=== PATIENT | male | born 1970 | race African-American/Black ===

== ENCOUNTER 2017-10-12 17:48 | Inpatient (IN) | payer OTHER ==
[2017-10-12 17:51] VITALS: BMI 29.0
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
[2017-10-12] MEDS ORDERED: SODIUM CHLORIDE 0.9% 500 ML INFUS.BAG IV ONE (19:28)
[2017-10-12 20:11] LABS: BASO % 0.2 % (0-2.0); EOS % 1.4 % (0-4.5); HEMATOCRIT 41.7 % (35.4-49); HEMOGLOBIN 14.1 GM/dL (11.7-16.9); LYMPH % 15.8 % (8-40); MCH 29.6 pg (25.7-33.7); MCHC 33.8 g/dl (32.0-35.9); MEAN CELL VOLUME 87.6 fl (80-96); MONO % 5.9 % (3.8-10.2); NEUT % 76.7 % (42.8-82.8); PLATELET COUNT 149 K/MM3 (134-434); RBC 4.76 M/mm3 (4.00-5.60); RDW 14.6 % (11.9-15.9)
--- NOTE | 2017-10-12 20:13 | PDOC ---
Attending Attestation - HPI HPI: 10/12/17 22:27 CC: Epigastric Pain HPI: The patient is a 47 year old male, with a significant past medical history of hypertension and Type 2 diabetes, gallstone pancreatitis, and on HIV prophylaxis , who presents to the emergency department with, epigastric pain. He describes his pain as non-radiating, deep, sharp, and ranking a 8/10. He describes his pain to be similar to an episode 2 years ago which he was admitted for gallstone pancreatitis. He denies any recent fevers, chills, headache or dizziness. He denies any recent nausea, vomit, diarrhea or constipation. He denies any recent chest pain or shortness of breath. He denies any recent dysuria, frequency, urgency or hematuria. Allergies: Lactose Past surgical history: None reported. Social History: Nonsmoker. Denies EtOH use and recreational drug use. - Physicial Exam PE: 10/12/17 23:42 Vitals: Triage vital signs reviewed General Appearance: No acute distress, well nourished, well developed Head: Atraumatic Neck: Supple; No nuchal rigidity Chest Wall: Nontender Cardiac: Regular rate and rhythm, no murmurs, no rubs, no gallops Lungs: Clear to auscultation bilateral, good air movement bilaterally Abdomen: +Right upper quadrant tenderness to palpation. Soft, nondistended, normal bowel sounds Genitourinary: Rectal: Exam deferred Extremities: Full range of motion to all extremities, no cyanosis, clubbing, or edema Skin: Warm and dry, no rashes or lesions, no rash, no petechiae Psych: Normal mood, normal affect - Medical Decision Making 10/12/17 10:50pm Call placed to Dr. Wise, business division chair for GI, case discussed with resident. 10:55 pm Call placed to Dr. Moreau, business division chair for surgery, case discussed with resident. <Allie Sawant - Last Filed: 10/12/17 23:42> - Resident Resident Name: Marcia Pillai - ED Attending Attestation I have performed the following: I have examined & evaluated the patient, The case was reviewed & discussed with the resident, I agree w/resident's findings & plan, Exceptions are as noted - Medical Decision Making Slightly elevated LFTs. Patient persistent pain. Ultrasound demonstrates gallstones and dilated CBD History examination physical exam consistent with choledocholithiasis Gastroenterology and surgery have both been consulsted antibiotics have been ordered we'll admit to medicine for further management. <Durga Troncoso - Last Filed: 10/13/17 00:11> Attestations - Attestations 10/12/17 22:27 Documentation prepared by Allie Sawant, acting as medical front desk specialist for Durga Troncoso MD. <Allie Sawant - Last Filed: 10/12/17 23:42> - Attestations Physician Attestation: A portion of this note was documented by scribe services under my direction I reviewed the details of note within reason and agree with the documentation with the following case summary and management plan written by me <Durga Troncoso - Last Filed: 10/13/17 00:11>
[2017-10-12 20:36] LABS: ALBUMIN 4.6 g/dl (3.4-5.0); ANION GAP 1 (8-16); BILIRUBIN,DIRECT 0.8 mg/dL (0.0-0.2); BILIRUBIN,TOTAL 1.2 mg/dL (0.2-1.0); BLOOD UREA NITROGEN 15 mg/dL (7-18); CALCIUM 9.2 mg/dL (8.5-10.1); CHLORIDE 105 mmol/L (98-107); CO2 32 mmol/L (21-32); CREATININE 0.9 mg/dL (0.7-1.3); GLUCOSE,RANDOM 143 mg/dL (74-106); POTASSIUM 3.9 mmol/L (3.5-5.1); SGOT/AST 227 U/L (15-37); SGPT/ALT 110 U/L (12-78); SODIUM 138 mmol/L (136-145); TOT PROT 8.5 g/dl (6.4-8.2)
[2017-10-12 20:37] LABS: ALK PHOS 99 U/L (45-117); INR 1.04 (0.82-1.09); LIPASE 252 U/L (73-393); PROTHROMBIN TIME (PATIENT) 11.8 SEC (9.98-11.88)
[2017-10-12] MEDS ORDERED: morphine CARPU-JECT 4 MG/1 ML DISP.SYRIN IVPUSH ONE (21:07)
[2017-10-12] MEDS ORDERED: morphine SULFATE 4 MG/ML VIAL ONE (21:12)
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
[2017-10-13] MEDS ORDERED: morphine SULFATE 4 MG/ML VIAL IVPUSH PRN (01:03)
[2017-10-13] MEDS ORDERED: ONDANSETRON 4 MG/2 ML VIAL IVPUSH PRN (01:03)
--- NOTE | 2017-10-13 01:29 | PN ---
Teaching Attending Note Name of Resident: Al Pennington ATTENDING PHYSICIAN STATEMENT I saw and evaluated the patient. Chart, data reviewed. I reviewed the resident's note and discussed the case with the resident. I agree with the resident's findings and plan as documented. SUBJECTIVE: 47 year old male, with a significant past medical history of hypertension and Type 2 diabetes, gallstone pancreatitis, and on HIV prophylaxis, presented with RUQ pain non-radiating, deep, sharp. He describes his pain to be similar to an episode 2 years ago which he was admitted for gallstone pancreatitis. U/S of gallbladder showed CBD dilatation, and gallbladder wall thickening and gallbladder distention. OBJECTIVE: Last Vital Signs Temp Pulse Resp BP Pulse Ox 97.9 F 67 20 159/88 99 10/12/17 17:48 10/12/17 17:48 10/12/17 17:48 10/12/17 17:48 10/12/17 17:48 General- pleasant, nad heent- at, nc, moist oral mucosa neck -supple cv -s1+s2+ rrr chest - cta b/l abdomen - soft, nt, bs+, no rebound tenderness ext- no pedal edema Abnormal Lab Results 10/12/17 19:52 Anion Gap 1 L Random Glucose 143 H Total Bilirubin 1.2 H D Direct Bilirubin 0.8 H D AST 227 H D ALT 110 H Total Protein 8.5 H ASSESSMENT AND PLAN: #47yo man with acute cholecystitis and choledocholithiasis with CBD dilatation- 9mm and gallbladder distention and wall thickening on U/S. GI and surgery consulted. Otherwise clinically stable. No evidence of infection so no antibiotics needed at this time. -admit to med/surg -morphine IV prn for pain control -IVF hydration -type and screen -PT, PTT -surgery consult for cholecystectomy -GI consult for ERCP -NPO -zofran PRN for nausea/vomiting #DM -insulin sliding scale #DVT- insulin sc
[2017-10-13] MEDS: SODIUM CHLORIDE 1,000 ML IV SCH ×2 (01:34→12:52)
[2017-10-13] MEDS: INSULIN SLIDING SCALE (NOVOLOG) 1 VIAL SQ SCH ×2 (06:37→12:59)
[2017-10-13 08:26] LABS: BASO % 0.3 % (0-2.0); EOS % 1.8 % (0-4.5); HEMATOCRIT 38.5 % (35.4-49); HEMOGLOBIN 12.8 GM/dL (11.7-16.9); LYMPH % 26.4 % (8-40); MCH 28.8 pg (25.7-33.7); MCHC 33.2 g/dl (32.0-35.9); MEAN CELL VOLUME 86.6 fl (80-96); MEAN PLT VOLUME 10.9 fl (7.5-11.1); MONO % 8.8 % (3.8-10.2); NEUT % 62.7 % (42.8-82.8); PLATELET COUNT 125 K/MM3 (134-434); RBC 4.45 M/mm3 (4.00-5.60); RDW 14.4 % (11.9-15.9); WHITE BLOOD COUNT 5.8 K/mm3 (4.0-10.0)
--- NOTE | 2017-10-13 09:33 | PN ---
Progress Note, Physician History of Present Illness: 47 yo man with pmh of HTN, NIDDM, gallstone pancreatitis, who presents with persistent RUQ pain starting at 4PM on day of admission. Pt with prior hx of gallstone pancreatitis and cholelithiasis 2-3 years ago during "[place] ", which he received w/u with plan for GB removal, however did not undergo surgery do symptomatic improvement and "busy schedule". On this admission, pt states he was eating [place] food around 3Pm and an hour later developed a sharp , deep, non-radiating pain in his RUQ, 02/21 which was identical to his prior presentation of choledocholithiasis. Pt states the pain was persistent, worsened with inspiration and non-positional. He denies f/c/n/v/d, cough, CP, RAUSCH , dizziness, back pain, dysuria, hematuria. No major changes in diet, sick contacts or recent travel. 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 In ED, pt diagnosed with choledocholiathiasis via RUQ US. Surgery and GI consulted. - Current Medication List Current Medications: Active Medications Carvedilol (Coreg -) 25 mg PO BID [facility] Emtricitabine/Tenofovir (Truvada) 1 tab PO DAILY [facility] Eplerenone (Eplerenone) 25 mg PO DAILY [facility] Sodium Chloride (Normal Saline -) 1,000 mls @ 75 mls/hr IV ASDIR [facility] Last Admin: 10/13/17 01:34 Dose: 75 mls/hr Insulin Aspart (Novolog Vial Sliding Scale -) 1 vial SQ ACHS [facility] PRN Reason: Protocol Last Admin: 10/13/17 06:37 Dose: Not Given Morphine Sulfate (Morphine Sulfate) 2 mg IVPUSH Q4H PRN PRN Reason: PAIN LEVEL 1-5 Ondansetron HCl (Zofran Injection) 4 mg IVPUSH Q6H PRN PRN Reason: NAUSEA - Objective Vital Signs: Vital Signs Temperature 97.8 F 10/13/17 06:00 Pulse Rate 65 10/13/17 06:00 Respiratory Rate 18 10/13/17 06:00 Blood Pressure 142/85 10/13/17 06:00 O2 Sat by Pulse Oximetry (%) 95 10/13/17 00:10 Cardiovascular: Yes: S1, S2 Respiratory: Yes: Regular, CTA Bilaterally Gastrointestinal: Yes: Normal Bowel Sounds, Soft. No: Tenderness Labs: CBC, BMP 10/13/17 06:45 10/12/17 19:52 INR, PTT INR 1.04 (0.82-1.09) 10/12/17 19:52 Problem List - Problems (1) HTN (hypertension) Assessment/Plan: Vital Signs Period Temp Pulse Resp BP Sys/Hinojosa Pulse Ox Last 24 Hr 97.8 F-98.5 F 65-89 18-20 142-159/85-93 95-99 MONITOR ON COREG EKG CARDIO Code(s): I10 - ESSENTIAL (PRIMARY) HYPERTENSION (2) Calculus common bile duct with chronic cholecystitis with obstruction Assessment/Plan: MRCP GI CONSULT IV ABX Code(s): K80.41 - CALCULUS OF BILE DUCT W CHOLECYSTITIS, UNSP, W OBSTRUCTION (3) Right upper quadrant abdominal pain Assessment/Plan: IMPROVED IV ABX GI SURGERY CONSULT NOTED Code(s): R10.11 - RIGHT UPPER QUADRANT PAIN (4) Abnormal LFTs Assessment/Plan: FOLLOW TRENDS MRCP Code(s): R94.5 - ABNORMAL RESULTS OF LIVER FUNCTION STUDIES (5) Diabetes Assessment/Plan: BGM Code(s): E11.9 - TYPE 2 DIABETES MELLITUS WITHOUT COMPLICATIONS
[2017-10-13 10:18] LABS: INR 1.16 (0.82-1.09); PROTHROMBIN TIME (PATIENT) 13.1 SEC (9.98-11.88)
[2017-10-13 10:46] LABS: ALBUMIN 3.6 g/dl (3.4-5.0); ALK PHOS 105 U/L (45-117); ANION GAP 7 (8-16); BILIRUBIN,TOTAL 2.1 mg/dL (0.2-1.0); BLOOD UREA NITROGEN 10 mg/dL (7-18); CALCIUM 8.5 mg/dL (8.5-10.1); CHLORIDE 108 mmol/L (98-107); CO2 26 mmol/L (21-32); CREATININE 0.8 mg/dL (0.7-1.3); GLUCOSE,RANDOM 101 mg/dL (74-106); LIPASE 129 U/L (73-393); POTASSIUM 3.9 mmol/L (3.5-5.1); SGPT/ALT 319 U/L (12-78); SODIUM 141 mmol/L (136-145); TOT PROT 6.9 g/dl (6.4-8.2)
[2017-10-13 10:47] LABS: SGOT/AST 528 U/L (15-37)
[2017-10-13] MEDS ORDERED: PT OWN MED DRAWER 7, Y5N ONE (13:02)
[2017-10-13] MEDS: EPLERENONE 25 MG TABLET PO SCH (13:03)
[2017-10-13] MEDS: CARVEDILOL 25 MG TABLET (FP) PO SCH ×2 (13:03→21:45)
[2017-10-13] MEDS: EMTRICITABINE 200MG/TENOFOVIR 300MG PO SCH (13:04)
--- NOTE | 2017-10-13 13:10 | CON.CARD ---
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 Cholecystectomy is being considered. The patient is an active man. Denies chest pains and shortness of breath while going up the stairs or walking outside. He is currently comfortable and symptom free. 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 History of Recent Travel: No Home Medications - Allergies Allergies/Adverse Reactions: Allergies Allergy/AdvReac Type Severity Reaction Status Date / Time lactose Allergy Verified 10/12/17 17:51 - Home Medications Home Medications: Ambulatory Orders Carvedilol [Coreg -] 25 mg PO BID #0 tablet 05/12/12 Eplerenone 25 mg PO DAILY #0 tablet 05/12/12 Valsartan [Diovan] 320 mg PO DAILY #0 tablet 05/12/12 Emtricitabine/Tenofovir (Tdf) [Truvada 200 mg-300 mg Tablet] 1 each PO DAILY Metformin HCl [Metformin HCl ER] 1,000 mg PO DAILY 10/12/17 Review of Systems - Review of Systems Constitutional: reports: No Symptoms Eyes: reports: No Symptoms HENT: reports: No Symptoms Neck: reports: No Symptoms Cardiovascular: reports: No Symptoms Respiratory: reports: No Symptoms Gastrointestinal: reports: Abdominal Pain, Nausea Genitourinary: reports: No Symptoms Breasts: reports: No Symptoms Reported Musculoskeletal: reports: No Symptoms Integumentary: reports: No Symptoms Neurological: reports: No Symptoms Endocrine: reports: No Symptoms Hematology/Lymphatic: reports: No Symptoms Psychiatric: reports: No Symptoms Vital Signs: Vital Signs Temperature 98 F 10/13/17 10:00 Pulse Rate 58 L 10/13/17 10:00 Respiratory Rate 18 10/13/17 10:00 Blood Pressure 142/90 10/13/17 10:00 O2 Sat by Pulse Oximetry (%) 95 10/13/17 00:10 Constitutional: Yes: Well Nourished, No Distress, Calm Eyes: Yes: WNL, Conjunctiva Clear, EOM Intact HENT: Yes: WNL, Atraumatic, Normocephalic Neck: Yes: WNL, Supple, Trachea Midline Respiratory: Yes: WNL, Regular, CTA Bilaterally Gastrointestinal: Yes: Normal Bowel Sounds, Soft, Tenderness Renal/: Yes: WNL Cardiovascular: Yes: WNL, Regular Rate and Rhythm JVD: No Carotid Bruit: No PMI: Non-Displaced Heart Sounds: Yes: S1, S2 Musculoskeletal: Yes: WNL Extremities: Yes: WNL Edema: No Peripheral Pulses: 2+ Left Carotid, 2+ Right Carotid, 2+ Left Femoral, 2+ Right Femoral, 2+ Left Popliteal, 2+ Right Popliteal, 2+ Left Doralis Pedis, 2+ Right Dorsalis Pedis Integumentary: Yes: WNL Neurological: Yes: WNL ...Motor Strength: WNL - Other Data Labs, Other Data: CBC, BMP 10/13/17 06:45 10/13/17 07:30 INR, PTT INR 1.16 (0.82-1.09) H 10/13/17 07:30 Troponin, BNP 10/12/17 20:40 Troponin I < 0.02 Troponin, BNP 10/12/17 20:40 Troponin I < 0.02 Assessment/Plan 47-year-old man with a history of diabetes, hypertension, hyperlipidemia, gallstone pancreatitis, now presenting with abdominal pain, nausea and vomiting. May need cholecystectomy. The patient reports no recent chest pains. He is very active and reports no important limitations nor symptoms during physical activity. I believe that the patient is medically optimized from the cardiac standpoint for surgery. There is no need for further cardiac workup nor testing prior to surgery. Please make sure that the patient receives his blood pressure medications in the morning of the surgery, and perioperatively as possible. Try to keep hemoglobin above 10.0 perioperatively. Please achieve good pain control perioperatively. Please proceed with surgery if deemed necessary. We will see postoperatively.
--- NOTE | 2017-10-13 14:54 | PN ---
Progress Note (short form) - Note Progress Note: ID Consult dictated Acute/ chronic cholecystitis R/O choledocholithiasis Worsening transaminitis Thrombocytopenia Obtain cultures Await MRCP Empiric zosyn Cholecystectomy per surgery Continue PrEP
[2017-10-13] MEDS: PIPERACILLIN/TAZOB 3.375 GM 3.375 GM in DEXTROSE 5%-WATER - 50 ML IVPB SCH ×2 (16:04→18:19)
--- NOTE | 2017-10-13 16:07 | EKG ---
Test Reason : Blood Pressure : / mmHG Vent. Rate : 067 BPM Atrial Rate : 067 BPM P-R Int : 176 ms QRS Dur : 108 ms QT Int : 386 ms P-R-T Axes : 064 043 -04 degrees QTc Int : 407 ms NORMAL SINUS RHYTHM LEFT ATRIAL ENLARGEMENT LEFT VENTRICULAR HYPERTROPHY T WAVE ABNORMALITY, CONSIDER INFERIOR ISCHEMIA ABNORMAL ECG WHEN COMPARED WITH ECG OF 12-MAY-2012 10:01, NO SIGNIFICANT CHANGE WAS FOUND Confirmed by MD THONG, LIZZ ([id number]) on 10/13/2017 4:07:20 PM Referred By: Confirmed By:LIZZ BENITO MD
--- NOTE | 2017-10-13 18:44 | CON.GI ---
Consult Consult Specialty:: GI Reason for Consultation:: Choledocolithiasis - History of Present Illness History of Present Illness: Chart reviewed. Events noted A 47M with hx of GS pancreatitis. Was advised to have GB out, but could not get it done thus far. Epigastric abdominal pain x 1 day. Onset after a meal, did not improve as day progressed. Similar to prior episode of GS pancreatitis. In ED noted to have cholestasisis with AST preominant transaminitis, normal WBC lipase and ALP. Had good response to IVF, pain medications, and NPO. Asymptomatic at the time of this encounter. Reports no history of dysphagia, odynophagia, GERD, PUD. No melena, hematochezia, jaundice, weight loss, known chronic leiver disease. Deneis alcohol abuse. US liver - cholelithiasis, CBD not well visualized. MRI was done, formal report pending. 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 History of Recent Travel: No Home Medications - Allergies Allergies/Adverse Reactions: Allergies Allergy/AdvReac Type Severity Reaction Status Date / Time lactose Allergy Verified 10/12/17 17:51 - Home Medications Home Medications: Ambulatory Orders Carvedilol [Coreg -] 25 mg PO BID #0 tablet 05/12/12 Eplerenone 25 mg PO DAILY #0 tablet 05/12/12 Valsartan [Diovan] 320 mg PO DAILY #0 tablet 05/12/12 Emtricitabine/Tenofovir (Tdf) [Truvada 200 mg-300 mg Tablet] 1 each PO DAILY Metformin HCl [Metformin HCl ER] 1,000 mg PO DAILY 10/12/17 Family Disease History - Family Disease History Family History: Unremarkable Review of Systems Findings/Remarks: As per HPI. H&P Physical Exam-GI Vital Signs: Vital Signs Temperature 98 F 10/13/17 10:00 Pulse Rate 58 L 10/13/17 10:00 Respiratory Rate 18 10/13/17 10:00 Blood Pressure 142/90 10/13/17 10:00 O2 Sat by Pulse Oximetry (%) 95 10/13/17 00:10 Constitutional: Yes: Well Nourished, No Distress, Calm Eyes: Yes: Conjunctiva Clear HENT: Yes: Atraumatic Neck: Yes: Supple Cardiovascular: Yes: Regular Rate and Rhythm Respiratory: Yes: Regular ...Auscultate: Yes: Normoactive Bowel Sounds ...Palpate: No: Firm/Rigid, Guarding, Splenomegaly, Tenderness, Epigastium Neurological: Yes: Alert, Oriented Labs: CBC, BMP 10/13/17 06:45 10/13/17 07:30 INR, PTT INR 1.16 (0.82-1.09) H 10/13/17 07:30 Laboratory Tests 10/12/17 10/12/17 10/12/17 19:52 19:52 19:52 WBC 9.0 D RBC 4.76 Hgb 14.1 Hct 41.7 MCV 87.6 MCH 29.6 MCHC 33.8 RDW 14.6 Plt Count 149 D MPV 10.0 Neutrophils % 76.7 D Lymphocytes % 15.8 D Monocytes % 5.9 Eosinophils % 1.4 D Basophils % 0.2 PT with INR 11.80 INR 1.04 Sodium 138 Potassium 3.9 Chloride 105 Carbon Dioxide 32 Anion Gap 1 L BUN 15 D Creatinine 0.9 D Creat Clearance w eGFR > 60 POC Glucometer Random Glucose 143 H Calcium 9.2 Total Bilirubin 1.2 H D Direct Bilirubin 0.8 H D AST 227 H D ALT 110 H Alkaline Phosphatase 99 D Troponin I Total Protein 8.5 H Albumin 4.6 D Lipase 252 Blood Type Antibody Screen 10/12/17 10/12/17 10/13/17 19:52 20:40 06:35 WBC RBC Hgb Hct MCV MCH MCHC RDW Plt Count MPV Neutrophils % Lymphocytes % Monocytes % Eosinophils % Basophils % PT with INR INR Sodium Potassium Chloride Carbon Dioxide Anion Gap BUN Creatinine Creat Clearance w eGFR POC Glucometer 95 Random Glucose Calcium Total Bilirubin Direct Bilirubin AST ALT Alkaline Phosphatase Troponin I < 0.02 Total Protein Albumin Lipase Blood Type O POSITIVE Antibody Screen Negative 10/13/17 10/13/17 10/13/17 06:45 07:30 07:30 WBC 5.8 D RBC 4.45 Hgb 12.8 Hct 38.5 MCV 86.6 MCH 28.8 MCHC 33.2 RDW 14.4 Plt Count 125 L MPV 10.9 Neutrophils % 62.7 Lymphocytes % 26.4 D Monocytes % 8.8 Eosinophils % 1.8 Basophils % 0.3 PT with INR 13.10 H INR 1.16 H Sodium 141 Potassium 3.9 Chloride 108 H Carbon Dioxide 26 Anion Gap 7 L BUN 10 D Creatinine 0.8 Creat Clearance w eGFR > 60 POC Glucometer Random Glucose 101 D Calcium 8.5 Total Bilirubin 2.1 H D Direct Bilirubin AST 528 H D ALT 319 H D Alkaline Phosphatase 105 Troponin I Total Protein 6.9 Albumin 3.6 D Lipase 129 Blood Type Antibody Screen 10/13/17 12:59 WBC RBC Hgb Hct MCV MCH MCHC RDW Plt Count MPV Neutrophils % Lymphocytes % Monocytes % Eosinophils % Basophils % PT with INR INR Sodium Potassium Chloride Carbon Dioxide Anion Gap BUN Creatinine Creat Clearance w eGFR POC Glucometer 104 Random Glucose Calcium Total Bilirubin Direct Bilirubin AST ALT Alkaline Phosphatase Troponin I Total Protein Albumin Lipase Blood Type Antibody Screen Imaging - Results MRI: Pending Problem List - Problems (1) Abnormal LFTs Code(s): R94.5 - ABNORMAL RESULTS OF LIVER FUNCTION STUDIES (2) Biliary calculi, common bile duct Code(s): K80.50 - CALCULUS OF BILE DUCT W/O CHOLANGITIS OR CHOLECYST W/O OBST (3) Calculus common bile duct with chronic cholecystitis with obstruction Code(s): K80.41 - CALCULUS OF BILE DUCT W CHOLECYSTITIS, UNSP, W OBSTRUCTION (4) Diabetes Code(s): E11.9 - TYPE 2 DIABETES MELLITUS WITHOUT COMPLICATIONS (5) HTN (hypertension) Code(s): I10 - ESSENTIAL (PRIMARY) HYPERTENSION Assessment/Plan A47M with cholelithiasis and hx of GS pancreatitis. Agree with current management Await for MRI/MRCP results ERCP if MRCP pos for choledocolithiasis Labs ordered Please keep NPO Discussed with the patient
--- NOTE | 2017-10-13 23:26 | CONS ---
DATE OF CONSULTATION: 10/13/2017 INFECTIOUS DISEASE CONSULTATION HISTORY OF PRESENT ILLNESS: The patient is a 47-year-old male with a prior history of gallstone pancreatitis, diabetes mellitus, and hypertension, evaluated for acute and chronic cholecystitis. The patient was admitted to the hospital 10/12/2017 after developing postprandial epigastric and right upper quadrant abdominal pain. He denies any associated nausea, vomiting, or diarrhea. He presented to the emergency room where he was noted to have elevated liver enzymes. A sonogram showed a large 3-cm gallstone with suggestion of acute cholecystitis. His course has been complicated by worsening transaminitis and thrombocytopenia. At the present time, he has no complaints of pain. He denies any associated fever or chills. The patient had a similar episode in 04/2012. At that time, he was advised a cholecystectomy; however, this was deferred by the patient. He denies any excessive alcohol intake. No history of hyperlipidemia. PAST MEDICAL HISTORY: Positive for non-insulin dependent diabetes mellitus, hypertension, gallstone pancreatitis. ALLERGIES: LACTOSE. MEDICATION: Include Coreg, Diovan, metformin, Truvada. 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 He is a nonsmoker. Social ETOH. SYSTEMS REVIEW: Neurologic: No loss of consciousness, seizure activity, or focal weakness. Cardiac: Negative chest pain or palpitations. Respiratory: Negative cough or sputum production. Gastrointestinal: As per HPI. Genitourinary: Negative for urinary tract infection. LABORATORY DATA: White count 5.8, platelets 125, bilirubin 2.1, alkaline phosphatase 105, AST 528, ALT 319. Chest x-ray negative for acute infiltrate. PHYSICAL EXAMINATION: General: He is supine in bed, awake and alert. He is not acutely toxic appearing, in no acute distress. Vital signs: Temperature 98F, blood pressure 142/90, pulse 51 regular, respirations 18 per minute. HEENT: Sclerae anicteric. Cardiovascular: Heart sounds S1, S2. Respiratory: Lungs clear. Abdomen: Soft. No suprapubic or flank tenderness. Extremities: Negative for edema. IMPRESSION: 1. [id number]-rj-kdbrnea cholecystitis. 2. Rule out choledocholithiasis. 3. Worsening transaminitis. 4. Thrombocytopenia. Will obtain blood culture, await MRCP empiric coverage, biliary tract pathogens with Zosyn. Surgical evaluation, cholecystectomy as per surgery. Patient is presently on Truvada for preexposure prophylaxis. 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 Continue Truvada. Thank you for the kind referral. SAHIL CHEW M.D. [id number]
[2017-10-14] MEDS: PIPERACILLIN/TAZOB 3.375 GM 3.375 GM in DEXTROSE 5%-WATER - 50 ML IVPB SCH ×3 (01:14→18:17)
[2017-10-14 08:19] LABS: INR 1.21 (0.82-1.09); PROTHROMBIN TIME (PATIENT) 13.7 SEC (9.98-11.88)
[2017-10-14 08:21] LABS: ACTIVATED PTT 31.7 SECONDS (26.9-34.4)
[2017-10-14 08:23] LABS: BASO % 0.6 % (0-2.0); EOS % 1.9 % (0-4.5); HEMATOCRIT 40.1 % (35.4-49); HEMOGLOBIN 13.2 GM/dL (11.7-16.9); LYMPH % 15.9 % (8-40); MCH 28.7 pg (25.7-33.7); MEAN CELL VOLUME 86.9 fl (80-96); MEAN PLT VOLUME 10.1 fl (7.5-11.1); NEUT % 74.6 % (42.8-82.8); PLATELET COUNT 125 K/MM3 (134-434); RBC 4.61 M/mm3 (4.00-5.60); RDW 14.9 % (11.9-15.9); WHITE BLOOD COUNT 6.4 K/mm3 (4.0-10.0)
[2017-10-14] MEDS: CARVEDILOL 25 MG TABLET (FP) PO SCH ×2 (10:01→21:42)
[2017-10-14] MEDS: EPLERENONE 25 MG TABLET PO SCH (10:01)
[2017-10-14] MEDS: EMTRICITABINE 200MG/TENOFOVIR 300MG PO SCH (10:01)
[2017-10-14] MEDS ORDERED: MIDAZOLAM HCL 2 MG/2 ML SINGLE DOSE VIAL ONE (10:21)
[2017-10-14] MEDS ORDERED: ROCURONIUM BROMIDE 50 MG/5 ML VIAL ONE (10:21)
[2017-10-14] MEDS ORDERED: PROPOFOL 20 ML ONE (10:21)
[2017-10-14] MEDS ORDERED: GLYCOPYRROLATE 0.2 MG/1 ML VIAL ONE ×3 (10:22)
[2017-10-14] MEDS ORDERED: fentaNYL CITRATE 250 MCG/5 ML VIAL ONE (10:22)
[2017-10-14] MEDS ORDERED: NEOSTIGMINE METHYLSULFATE 0.5 MG/ML - 10 ML MDV ONE (10:22)
--- NOTE | 2017-10-14 10:35 | PN ---
Progress Note, Physician History of Present Illness: C/O RUQ discomfort No nausea/ vomiting No BM No c/o fever/ chills WBC WNL + thrombocytopenia LFTs pending - Current Medication List Current Medications: Active Medications Carvedilol (Coreg -) 25 mg PO BID [facility] Last Admin: 10/14/17 10:01 Dose: 25 mg Emtricitabine/Tenofovir (Truvada) 1 tab PO DAILY [facility] Last Admin: 10/14/17 10:01 Dose: 1 tab Eplerenone (Eplerenone) 25 mg PO DAILY [facility] Last Admin: 10/14/17 10:01 Dose: 25 mg Piperacillin Sod/Tazobactam (Sod 3.375 gm/ Dextrose) 50 mls @ 100 mls/hr IVPB Q8H-IV [facility] PRN Reason: Protocol Last Admin: 10/14/17 10:03 Dose: 100 mls/hr - Objective Vital Signs: Vital Signs Temperature 98.3 F 10/14/17 06:32 Pulse Rate 76 10/14/17 06:32 Respiratory Rate 18 10/14/17 06:32 Blood Pressure 108/64 10/14/17 06:32 O2 Sat by Pulse Oximetry (%) 97 10/13/17 21:00 Constitutional: Yes: No Distress Eyes: Yes: Sclera Icterus Cardiovascular: Yes: Regular Rate and Rhythm, S1, S2 Respiratory: Yes: CTA Bilaterally Gastrointestinal: Yes: Normal Bowel Sounds, Soft, Tenderness, Other (+ RUQ tenderness to palpation) Edema: No Labs: CBC, BMP 10/14/17 06:30 INR, PTT INR 1.21 (0.82-1.09) H 10/14/17 06:30 Assessment/Plan Acute on chronic cholecystitits R/O choledocholithiasis Elevated LFTs Thrombocytopenia BC pending For cholecystectomy Continue empiric zosyn aurelia-operatively
--- NOTE | 2017-10-14 10:49 | PN ---
Progress Note (short form) - Note Progress Note: GI Preprocedure NOte: I was asked by Dr. Perez to do an ERCP in this patient who has CBD stones. I have discussed the ERCP procedure in detail including informing him of the potential for such complications as perforation and hemorrhage and ERCP induces pancreatitis leading to multiorgan failure. He has no major medical problems. He is hypertensive and had a RIH. PE: Lungs: clear Cor: RR, nl S1, S2 Abd: BS normoactive, nontender Will proceed with ERCP FACUNDO
[2017-10-14] MEDS ORDERED: INDOMETHACIN 50 MG RECTAL SUPPOSITORY PR ONE ×2 (10:54→11:00)
[2017-10-14] MEDS ORDERED: ONDANSETRON 4 MG/2 ML VIAL ONE (11:02)
[2017-10-14] MEDS ORDERED: DEXAMETHASONE SOD PHOSPHATE 10 MG/1 ML VIAL ONE (11:03)
[2017-10-14] MEDS ORDERED: SEVOFLURANE 250 ML BTL ONE (11:51)
--- NOTE | 2017-10-14 12:09 | PN ---
Progress Note, Physician Chief Complaint: Cholecystitis History of Present Illness: IN OR right now - Current Medication List Current Medications: Active Medications Carvedilol (Coreg -) 25 mg PO BID [facility] Last Admin: 10/14/17 10:01 Dose: 25 mg Emtricitabine/Tenofovir (Truvada) 1 tab PO DAILY [facility] Last Admin: 10/14/17 10:01 Dose: 1 tab Eplerenone (Eplerenone) 25 mg PO DAILY [facility] Last Admin: 10/14/17 10:01 Dose: 25 mg Piperacillin Sod/Tazobactam (Sod 3.375 gm/ Dextrose) 50 mls @ 100 mls/hr IVPB Q8H-IV [facility] PRN Reason: Protocol Last Admin: 10/14/17 10:03 Dose: 100 mls/hr - Objective Vital Signs: Vital Signs Temperature 97.6 F 10/14/17 10:00 Pulse Rate 75 10/14/17 10:00 Respiratory Rate 20 10/14/17 10:00 Blood Pressure 131/79 10/14/17 10:00 O2 Sat by Pulse Oximetry (%) 97 10/14/17 09:00 Labs: CBC, BMP 10/14/17 06:30 INR, PTT INR 1.21 (0.82-1.09) H 10/14/17 06:30 Problem List - Problems (1) Biliary calculi, common bile duct Assessment/Plan: -Surgical consult -for choleycystectomy Code(s): K80.50 - CALCULUS OF BILE DUCT W/O CHOLANGITIS OR CHOLECYST W/O OBST (2) Diabetes Assessment/Plan: -A1c at 8.0 -BGM -Diabetic diet once he is advanced from clear liquids -metformin on hold during inpatient status -Novolog sliding scale -endocrinology consult -RD consult Code(s): E11.9 - TYPE 2 DIABETES MELLITUS WITHOUT COMPLICATIONS Qualifiers: Diabetes mellitus type: type 2 (3) HTN (hypertension) Assessment/Plan: -controlled at this time Code(s): I10 - ESSENTIAL (PRIMARY) HYPERTENSION (4) Hypernatremia Assessment/Plan: -monitor for now -repeat labs in AM Code(s): E87.0 - HYPEROSMOLALITY AND HYPERNATREMIA Assessment/Plan see problem list
[2017-10-14 12:25] LABS: ALBUMIN 3.8 g/dl (3.4-5.0); ALK PHOS 152 U/L (45-117); ANION GAP 11 (8-16); BILIRUBIN,TOTAL 1.8 mg/dL (0.2-1.0); BLOOD UREA NITROGEN 9 mg/dL (7-18); CALCIUM 9.1 mg/dL (8.5-10.1); CHLORIDE 114 mmol/L (98-107); CO2 24 mmol/L (21-32); GLUCOSE,RANDOM 102 mg/dL (74-106); POTASSIUM 3.9 mmol/L (3.5-5.1); SGOT/AST 222 U/L (15-37); SGPT/ALT 379 U/L (12-78); SODIUM 149 mmol/L (136-145); TOT PROT 7.5 g/dl (6.4-8.2)
--- NOTE | 2017-10-14 12:25 | PN ---
Progress Note (short form) - Note Progress Note: GI Procedure Note: Please see scanned ERCP report. Two CBD stones extracted. Need to observe for pancreatitis.
[2017-10-14] MEDS ORDERED: LACTATED RINGERS SOLUTION 1,000 ML/1,000 ML INFUS.BAG IV SCH ×2 (12:30→18:30)
--- NOTE | 2017-10-14 14:33 | PN ---
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 Cholecystectomy is being considered. The patient is an active man. Denies chest pains and shortness of breath while going up the stairs or walking outside. He is currently comfortable and symptom free. The patient is s/p ERCP and stone removal. Awaiting lap rafal 10/15/17 - Current Medication List Current Medications: Active Medications Carvedilol (Coreg -) 25 mg PO BID [facility] Last Admin: 10/14/17 10:01 Dose: 25 mg Emtricitabine/Tenofovir (Truvada) 1 tab PO DAILY [facility] Last Admin: 10/14/17 10:01 Dose: 1 tab Eplerenone (Eplerenone) 25 mg PO DAILY [facility] Last Admin: 10/14/17 10:01 Dose: 25 mg Piperacillin Sod/Tazobactam (Sod 3.375 gm/ Dextrose) 50 mls @ 100 mls/hr IVPB Q8H-IV [facility] PRN Reason: Protocol Last Admin: 10/14/17 10:03 Dose: 100 mls/hr Lactated Ringer's (Lactated Ringers Solution) 1,000 ml in 1,000 mls @ 250 mls/ hr IV ASDIR [facility] Stop: 10/14/17 18:30 Last Admin: 10/14/17 14:28 Dose: 250 mls/hr Lactated Ringer's (Lactated Ringers Solution) 1,000 ml in 1,000 mls @ 200 mls/ hr IV ASDIR [facility] Stop: 10/15/17 00:30 Lactated Ringer's (Lactated Ringers Solution) 1,000 ml in 1,000 mls @ 175 mls/ hr IV ASDIR [facility] Stop: 10/15/17 06:30 Lactated Ringer's (Lactated Ringers Solution) 1,000 ml in 1,000 mls @ 150 mls/ hr IV ASDIR [facility] Stop: 10/15/17 12:30 Lactated Ringer's (Lactated Ringers Solution) 1,000 ml in 1,000 mls @ 125 mls/ hr IV ASDIR [facility] - Objective Vital Signs: Vital Signs Temperature 98.4 F 10/14/17 13:31 Pulse Rate 61 10/14/17 13:31 Respiratory Rate 19 10/14/17 13:31 Blood Pressure 136/89 10/14/17 13:31 O2 Sat by Pulse Oximetry (%) 97 10/14/17 13:31 Constitutional: Yes: Well Nourished, No Distress Eyes: Yes: Conjunctiva Clear, EOM Intact HENT: Yes: Normocephalic Neck: Yes: Trachea Midline Cardiovascular: Yes: Regular Rate and Rhythm Respiratory: Yes: CTA Bilaterally Gastrointestinal: Yes: Normal Bowel Sounds Musculoskeletal: Yes: WNL Extremities: Yes: WNL Edema: No Peripheral Pulses WNL: Yes Labs: CBC, BMP 10/14/17 06:30 10/14/17 06:30 INR, PTT INR 1.21 (0.82-1.09) H 10/14/17 06:30 Problem List - Problems (1) Preop cardiovascular exam Assessment/Plan: There are no cardiac contraindications to surgery. The patient is medically optimized for the surgery. He is at low risk of periop events. No further testing is needed. Code(s): Z01.810 - ENCOUNTER FOR PREPROCEDURAL CARDIOVASCULAR EXAMINATION
--- NOTE | 2017-10-14 15:52 | PN ---
Progress Note, Physician Chief Complaint: abdominal pain History of Present Illness: 47 yo man PMH HTN, NIDDM, gallstone pancreatitis, who presents with persistent RUQ pain starting at 4PM on day of admission. He has had prior episode of gallstone pancreatitis and cholelithiasis 2-3 years ago during "[place] ", which he received w/u with plan for GB removal, however did not undergo surgery do symptomatic improvement and "busy schedule". On this admission, pt states he was eating Syriac food around 3Pm and an hour later developed a sharp , deep, non-radiating pain in his RUQ, 02/21 which was identical to his prior presentation of choledocholithiasis. Pt states the pain was persistent, worsened with inspiration and non-positional. He denies f/c/n/v/d, cough, CP, RAUSCH , dizziness, back pain, dysuria, hematuria. No major changes in diet, sick contacts or recent travel. 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 We were asked to assess. - Current Medication List Current Medications: Active Medications Carvedilol (Coreg -) 25 mg PO BID [facility] Last Admin: 10/14/17 10:01 Dose: 25 mg Emtricitabine/Tenofovir (Truvada) 1 tab PO DAILY [facility] Last Admin: 10/14/17 10:01 Dose: 1 tab Eplerenone (Eplerenone) 25 mg PO DAILY [facility] Last Admin: 10/14/17 10:01 Dose: 25 mg Piperacillin Sod/Tazobactam (Sod 3.375 gm/ Dextrose) 50 mls @ 100 mls/hr IVPB Q8H-IV [facility] PRN Reason: Protocol Last Admin: 10/14/17 10:03 Dose: 100 mls/hr Lactated Ringer's (Lactated Ringers Solution) 1,000 ml in 1,000 mls @ 250 mls/ hr IV ASDIR [facility] Stop: 10/14/17 18:30 Last Admin: 10/14/17 14:28 Dose: 250 mls/hr Lactated Ringer's (Lactated Ringers Solution) 1,000 ml in 1,000 mls @ 200 mls/ hr IV ASDIR [facility] Stop: 10/15/17 00:30 Lactated Ringer's (Lactated Ringers Solution) 1,000 ml in 1,000 mls @ 175 mls/ hr IV ASDIR [facility] Stop: 10/15/17 06:30 Lactated Ringer's (Lactated Ringers Solution) 1,000 ml in 1,000 mls @ 150 mls/ hr IV ASDIR [facility] Stop: 10/15/17 12:30 Lactated Ringer's (Lactated Ringers Solution) 1,000 ml in 1,000 mls @ 125 mls/ hr IV ASDIR [facility] - Objective Vital Signs: Vital Signs Temperature 96.7 F L 10/14/17 14:00 Pulse Rate 67 10/14/17 14:00 Respiratory Rate 18 10/14/17 14:00 Blood Pressure 129/87 10/14/17 14:00 O2 Sat by Pulse Oximetry (%) 97 10/14/17 13:31 Vital Signs Period Temp Pulse Resp BP Sys/Hinojosa Pulse Ox Last 24 Hr 96.7 F-98.9 F 57-77 17-20 108-146/64-92 96-99 Constitutional: Yes: Well Nourished, No Distress, Calm Eyes: Yes: Conjunctiva Clear, EOM Intact HENT: Yes: Atraumatic, Normocephalic Neck: Yes: Supple, Trachea Midline Cardiovascular: Yes: Regular Rate and Rhythm, S1, S2 Respiratory: Yes: Regular, CTA Bilaterally Gastrointestinal: Yes: Normal Bowel Sounds, Soft, Tenderness (RUQ - murphys). No: Tenderness, Epigastrium, Tenderness, Rebound ...Rectal Exam: Yes: Deferred Genitourinary: No: CVA Tenderness - Left, CVA Tenderness - Right Extremities: No: Cool, Cyanosis Edema: No Peripheral Pulses WNL: Yes Neurological: Yes: Alert, Oriented Psychiatric: Yes: Alert, Oriented Labs: CBC, BMP 10/14/17 06:30 10/14/17 06:30 INR, PTT INR 1.21 (0.82-1.09) H 10/14/17 06:30 Problem List - Problems (1) Choledocholithiasis with chronic cholecystitis Assessment/Plan: 47 yo male MMP with choledocholithiasis with acute on chronic cholecystitis, Appreciate cardiology input. ERCP found two stones in CBD, will watch for pancreatitis NPO and IVF hydration empiric IV antibiotics adequate analgesia repeat labs (including preop screening labs) OR for Lap Gabriela 4/3 after labs Discussed with patient risks, benefits and alternatives of laparoscopic possible open chholecysectomy, including but not limited to bleeding, infection , injury to adjacent structures, leak or injury, intraabdominal abscess, need for further procedures, ; alternatives include antibiotics, delayed or no surgery - risks of this include failure of nonoperative therapy, perforation, sepsis, recurrence, . Patient desires to proceed with operation - will take to OR for above. Informed consent signed for same. Thank you for the opportunity to participate in the care of this patient. Code(s): K80.44 - CALCULUS OF BILE DUCT W CHRONIC CHOLECYST W/O OBSTRUCTION (2) Calculus common bile duct with chronic cholecystitis with obstruction Code(s): K80.41 - CALCULUS OF BILE DUCT W CHOLECYSTITIS, UNSP, W OBSTRUCTION (3) Right upper quadrant abdominal pain Code(s): R10.11 - RIGHT UPPER QUADRANT PAIN (4) Biliary calculi, common bile duct Code(s): K80.50 - CALCULUS OF BILE DUCT W/O CHOLANGITIS OR CHOLECYST W/O OBST
[2017-10-14] MEDS: morphine SULFATE 4 MG/ML VIAL IVPUSH PRN (21:41)
[2017-10-14] MEDS: INSULIN SLIDING SCALE (NOVOLOG) 1 VIAL SQ SCH (21:45)
[2017-10-15] MEDS ORDERED: LACTATED RINGERS SOLUTION 1,000 ML/1,000 ML INFUS.BAG IV SCH ×3 (00:30→12:30)
[2017-10-15] MEDS: PIPERACILLIN/TAZOB 3.375 GM 3.375 GM in DEXTROSE 5%-WATER - 50 ML IVPB SCH ×3 (01:04→18:40)
[2017-10-15] MEDS: morphine SULFATE 4 MG/ML VIAL IVPUSH PRN ×2 (04:15→15:54)
[2017-10-15] MEDS: INSULIN SLIDING SCALE (NOVOLOG) 1 VIAL SQ SCH ×4 (06:09→21:45)
[2017-10-15] MEDS ORDERED: morphine SULFATE 4 MG/ML VIAL IVPUSH ONE (06:24)
[2017-10-15 08:04] LABS: CHLORIDE 104 mmol/L (98-107); POTASSIUM 3.7 mmol/L (3.5-5.1); SODIUM 138 mmol/L (136-145)
[2017-10-15 08:06] LABS: BASO % 0.2 % (0-2.0); EOS % 0.2 % (0-4.5); HEMOGLOBIN 13.3 GM/dL (11.7-16.9); LYMPH % 16.4 % (8-40); MCH 28.8 pg (25.7-33.7); MCHC 33.2 g/dl (32.0-35.9); MEAN CELL VOLUME 86.7 fl (80-96); MEAN PLT VOLUME 10.3 fl (7.5-11.1); MONO % 8.1 % (3.8-10.2); NEUT % 75.1 % (42.8-82.8); PLATELET COUNT 141 K/MM3 (134-434); RBC 4.61 M/mm3 (4.00-5.60); WHITE BLOOD COUNT 5.8 K/mm3 (4.0-10.0)
[2017-10-15 08:18] LABS: ALBUMIN 3.5 g/dl (3.4-5.0); ALK PHOS 115 U/L (45-117); ANION GAP 7 (8-16); BILIRUBIN,DIRECT 0.3 mg/dL (0.0-0.2); BILIRUBIN,TOTAL 0.9 mg/dL (0.2-1.0); BLOOD UREA NITROGEN 14 mg/dL (7-18); CALCIUM 8.4 mg/dL (8.5-10.1); CO2 27 mmol/L (21-32); CREATININE 0.9 mg/dL (0.7-1.3); GLUCOSE,RANDOM 131 mg/dL (74-106); SGOT/AST 70 U/L (15-37); SGPT/ALT 218 U/L (12-78); TOT PROT 6.6 g/dl (6.4-8.2)
[2017-10-15 08:31] LABS: AMYLASE 962 U/L (25-115); LIPASE 6516 U/L (73-393)
[2017-10-15] MEDS ORDERED: FAMOTIDINE 20 MG/50 ML IVPB 20 MG/50 ML MG IVPB ONE (09:00)
--- NOTE | 2017-10-15 09:29 | PN ---
Progress Note (short form) - Note Progress Note: Anesthesia postop note 47 y/o M s/p GA for ERCP POD#1, vss, aaox3, some abdominal discomfort, swollen upper lip. No anesthesia complications.
[2017-10-15] MEDS ORDERED: PT OWN MED DRAWER 7, Y5N ONE ×3 (09:32→18:38)
--- NOTE | 2017-10-15 09:52 | PN ---
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 Cholecystectomy is being considered. The patient is an active man. Denies chest pains and shortness of breath while going up the stairs or walking outside. He is currently comfortable and symptom free. The patient is s/p ERCP and stone removal. Awaiting lap rafal 10/15/17 - Current Medication List Current Medications: Active Medications Carvedilol (Coreg -) 25 mg PO BID [facility] Last Admin: 10/14/17 21:42 Dose: 25 mg Emtricitabine/Tenofovir (Truvada) 1 tab PO DAILY [facility] Last Admin: 10/14/17 10:01 Dose: 1 tab Eplerenone (Eplerenone) 25 mg PO DAILY [facility] Last Admin: 10/14/17 10:01 Dose: 25 mg Piperacillin Sod/Tazobactam (Sod 3.375 gm/ Dextrose) 50 mls @ 100 mls/hr IVPB Q8H-IV [facility] PRN Reason: Protocol Last Admin: 10/15/17 09:33 Dose: 100 mls/hr Lactated Ringer's (Lactated Ringers Solution) 1,000 ml in 1,000 mls @ 150 mls/ hr IV ASDIR [facility] Stop: 10/15/17 12:30 Last Admin: 10/15/17 05:52 Dose: 150 mls/hr Lactated Ringer's (Lactated Ringers Solution) 1,000 ml in 1,000 mls @ 125 mls/ hr IV ASDIR [facility] Insulin Aspart (Novolog Vial Sliding Scale -) 1 vial SQ ACHS [facility] PRN Reason: Protocol Last Admin: 10/15/17 06:09 Dose: Not Given Morphine Sulfate (Morphine Sulfate) 1 mg IVPUSH Q6H PRN PRN Reason: PAIN LEVEL 7 - 10 Last Admin: 10/15/17 04:15 Dose: 1 mg - Objective Vital Signs: Vital Signs Temperature 98 F 10/15/17 09:00 Pulse Rate 72 10/15/17 09:00 Respiratory Rate 18 10/15/17 09:00 Blood Pressure 152/94 10/15/17 09:00 O2 Sat by Pulse Oximetry (%) 96 10/14/17 20:43 Constitutional: Yes: No Distress, Calm Eyes: Yes: Conjunctiva Clear, EOM Intact HENT: Yes: Atraumatic, Normocephalic Neck: Yes: Trachea Midline Cardiovascular: Yes: Regular Rate and Rhythm Respiratory: Yes: CTA Bilaterally Gastrointestinal: Yes: Normal Bowel Sounds, Soft Extremities: Yes: WNL Edema: No Peripheral Pulses WNL: Yes Labs: CBC, BMP 10/15/17 06:00 10/15/17 06:00 INR, PTT INR 1.21 (0.82-1.09) H 10/14/17 06:30 Problem List - Problems (1) Preop cardiovascular exam Assessment/Plan: There are no cardiac contraindications to surgery. The patient is medically optimized for the surgery. He is at low risk of periop events. No further testing is needed. Will see postop as needed. Call with questions. Code(s): Z01.810 - ENCOUNTER FOR PREPROCEDURAL CARDIOVASCULAR EXAMINATION
[2017-10-15] MEDS: EPLERENONE 25 MG TABLET PO SCH (12:16)
[2017-10-15] MEDS: CARVEDILOL 25 MG TABLET (FP) PO SCH ×2 (12:16→21:45)
[2017-10-15] MEDS: EMTRICITABINE 200MG/TENOFOVIR 300MG PO SCH (12:16)
--- NOTE | 2017-10-15 12:19 | PN ---
Progress Note, Physician History of Present Illness: S/P ERCP, extraction of CBD stones C/O RUQ discomfort. + nausea. No vomiting No BM No c/o fever/ chills WBC WNL LFTs improved Lipase, amylase elevated - Current Medication List Current Medications: Active Medications Carvedilol (Coreg -) 25 mg PO BID [facility] Last Admin: 10/14/17 21:42 Dose: 25 mg Emtricitabine/Tenofovir (Truvada) 1 tab PO DAILY [facility] Last Admin: 10/14/17 10:01 Dose: 1 tab Eplerenone (Eplerenone) 25 mg PO DAILY [facility] Last Admin: 10/14/17 10:01 Dose: 25 mg Piperacillin Sod/Tazobactam (Sod 3.375 gm/ Dextrose) 50 mls @ 100 mls/hr IVPB Q8H-IV [facility] PRN Reason: Protocol Last Admin: 10/15/17 09:33 Dose: 100 mls/hr Lactated Ringer's (Lactated Ringers Solution) 1,000 ml in 1,000 mls @ 150 mls/ hr IV ASDIR [facility] Stop: 10/15/17 12:30 Last Admin: 10/15/17 05:52 Dose: 150 mls/hr Lactated Ringer's (Lactated Ringers Solution) 1,000 ml in 1,000 mls @ 125 mls/ hr IV ASDIR [facility] Insulin Aspart (Novolog Vial Sliding Scale -) 1 vial SQ ACHS [facility] PRN Reason: Protocol Last Admin: 10/15/17 06:09 Dose: Not Given Morphine Sulfate (Morphine Sulfate) 1 mg IVPUSH Q6H PRN PRN Reason: PAIN LEVEL 7 - 10 Last Admin: 10/15/17 04:15 Dose: 1 mg - Objective Vital Signs: Vital Signs Temperature 98 F 10/15/17 09:00 Pulse Rate 72 10/15/17 09:00 Respiratory Rate 18 10/15/17 09:00 Blood Pressure 152/94 10/15/17 09:00 O2 Sat by Pulse Oximetry (%) 96 10/14/17 20:43 Constitutional: Yes: No Distress Eyes: Yes: Conjunctiva Clear Cardiovascular: Yes: Regular Rate and Rhythm, S1, S2 Respiratory: Yes: CTA Bilaterally. No: Wheezes Gastrointestinal: Yes: Normal Bowel Sounds, Soft, Tenderness, Other (+RUQ tenderness) Edema: No Labs: CBC, BMP 10/15/17 06:00 10/15/17 06:00 INR, PTT INR 1.21 (0.82-1.09) H 10/14/17 06:30 Assessment/Plan Acute on chronic cholecystitits ? Gallstone pancreatitis S/P ERCP/ extraction CBD stones Elevated LFTs- improved Thrombocytopenia - resolved For cholecystectomy Continue empiric zosyn aurelia-operatively
[2017-10-15] MEDS ORDERED: ONDANSETRON 4 MG/2 ML VIAL IVPB PRN (12:29)
--- NOTE | 2017-10-15 15:40 | PN ---
Progress Note, Physician Chief Complaint: AWAKE ALERT COMFORTABLE ON IVF PAIN MEDS CHART AND NOTES REVIEWED - Current Medication List Current Medications: Active Medications Carvedilol (Coreg -) 25 mg PO BID [facility] Last Admin: 10/15/17 12:16 Dose: 25 mg Emtricitabine/Tenofovir (Truvada) 1 tab PO DAILY [facility] Last Admin: 10/15/17 12:16 Dose: 1 tab Eplerenone (Eplerenone) 25 mg PO DAILY [facility] Last Admin: 10/15/17 12:16 Dose: 25 mg Piperacillin Sod/Tazobactam (Sod 3.375 gm/ Dextrose) 50 mls @ 100 mls/hr IVPB Q8H-IV [facility] PRN Reason: Protocol Last Admin: 10/15/17 09:33 Dose: 100 mls/hr Lactated Ringer's (Lactated Ringers Solution) 1,000 ml in 1,000 mls @ 125 mls/ hr IV ASDIR [facility] Last Admin: 10/15/17 14:11 Dose: 125 mls/hr Insulin Aspart (Novolog Vial Sliding Scale -) 1 vial SQ ACHS [facility] PRN Reason: Protocol Last Admin: 10/15/17 14:17 Dose: Not Given Morphine Sulfate (Morphine Sulfate) 1 mg IVPUSH Q6H PRN PRN Reason: PAIN LEVEL 7 - 10 Last Admin: 10/15/17 04:15 Dose: 1 mg Ondansetron HCl (Zofran Injection) 8 mg IVPB Q6H PRN PRN Reason: NAUSEA AND/OR VOMITING - Objective Vital Signs: Vital Signs Temperature 97.9 F 10/15/17 13:42 Pulse Rate 87 10/15/17 13:42 Respiratory Rate 20 10/15/17 13:42 Blood Pressure 147/87 10/15/17 13:42 O2 Sat by Pulse Oximetry (%) 96 10/14/17 20:43 Constitutional: Yes: Mild Distress Eyes: Yes: WNL HENT: Yes: WNL Neck: Yes: WNL Cardiovascular: Yes: WNL Respiratory: Yes: WNL Gastrointestinal: Yes: Tenderness Genitourinary: Yes: WNL Musculoskeletal: Yes: WNL Extremities: Yes: WNL Edema: No Peripheral Pulses WNL: Yes Integumentary: Yes: WNL Wound/Incision: Yes: Clean/Dry Neurological: Yes: WNL ...Motor Strength: WNL Psychiatric: Yes: WNL Labs: CBC, BMP 10/15/17 06:00 10/15/17 06:00 INR, PTT INR 1.21 (0.82-1.09) H 10/14/17 06:30 Problem List - Problems (1) Abnormal LFTs Code(s): R94.5 - ABNORMAL RESULTS OF LIVER FUNCTION STUDIES (2) Biliary calculi, common bile duct Code(s): K80.50 - CALCULUS OF BILE DUCT W/O CHOLANGITIS OR CHOLECYST W/O OBST (3) Calculus common bile duct with chronic cholecystitis with obstruction Code(s): K80.41 - CALCULUS OF BILE DUCT W CHOLECYSTITIS, UNSP, W OBSTRUCTION (4) Choledocholithiasis with chronic cholecystitis Code(s): K80.44 - CALCULUS OF BILE DUCT W CHRONIC CHOLECYST W/O OBSTRUCTION (5) Diabetes Code(s): E11.9 - TYPE 2 DIABETES MELLITUS WITHOUT COMPLICATIONS Qualifiers: Diabetes mellitus type: type 2 (6) HTN (hypertension) Code(s): I10 - ESSENTIAL (PRIMARY) HYPERTENSION (7) Hypernatremia Code(s): E87.0 - HYPEROSMOLALITY AND HYPERNATREMIA (8) Right upper quadrant abdominal pain Code(s): R10.11 - RIGHT UPPER QUADRANT PAIN Assessment/Plan IVF PAIN CONTROL NPO LIPASE LEVEL IN MORNING ONCE ACUTE PANCREATITIS RESOLVES CAN CONTINUE WITH CHOLCYSTECTOMY
--- NOTE | 2017-10-15 15:48 | PN ---
Progress Note, Physician Chief Complaint: abdominal pain History of Present Illness: 47 yo man PMH HTN, NIDDM, gallstone pancreatitis, who presents with persistent RUQ pain starting at 4PM on day of admission. He has had prior episode of gallstone pancreatitis and cholelithiasis. S/p ERCP with extraction of two stones patient has abdominal pain. He is NPO. - Current Medication List Current Medications: Active Medications Carvedilol (Coreg -) 25 mg PO BID [facility] Last Admin: 10/15/17 12:16 Dose: 25 mg Emtricitabine/Tenofovir (Truvada) 1 tab PO DAILY [facility] Last Admin: 10/15/17 12:16 Dose: 1 tab Eplerenone (Eplerenone) 25 mg PO DAILY [facility] Last Admin: 10/15/17 12:16 Dose: 25 mg Piperacillin Sod/Tazobactam (Sod 3.375 gm/ Dextrose) 50 mls @ 100 mls/hr IVPB Q8H-IV [facility] PRN Reason: Protocol Last Admin: 10/15/17 09:33 Dose: 100 mls/hr Lactated Ringer's (Lactated Ringers Solution) 1,000 ml in 1,000 mls @ 125 mls/ hr IV ASDIR [facility] Last Admin: 10/15/17 14:11 Dose: 125 mls/hr Insulin Aspart (Novolog Vial Sliding Scale -) 1 vial SQ ACHS [facility] PRN Reason: Protocol Last Admin: 10/15/17 14:17 Dose: Not Given Morphine Sulfate (Morphine Sulfate) 1 mg IVPUSH Q6H PRN PRN Reason: PAIN LEVEL 7 - 10 Last Admin: 10/15/17 04:15 Dose: 1 mg Ondansetron HCl (Zofran Injection) 8 mg IVPB Q6H PRN PRN Reason: NAUSEA AND/OR VOMITING - Objective Vital Signs: Vital Signs Temperature 97.9 F 10/15/17 13:42 Pulse Rate 87 10/15/17 13:42 Respiratory Rate 20 10/15/17 13:42 Blood Pressure 147/87 10/15/17 13:42 O2 Sat by Pulse Oximetry (%) 96 10/14/17 20:43 Labs: CBC, BMP 10/15/17 06:00 10/15/17 06:00 INR, PTT INR 1.21 (0.82-1.09) H 04/02/18 06:30 Problem List - Problems (1) Choledocholithiasis with chronic cholecystitis Assessment/Plan: 47 yo male MMP with choledocholithiasis with acute on chronic cholecystitis, Appreciate cardiology input. ERCP found two stones in CBD, Lipase now >6500. will repeat labs and plan for surgery as the Lipase NPO and IVF hydration empiric IV antibiotics adequate analgesia repeat labs (including preop screening labs) OR for Lap Gabriela 4/4 after labs Discussed with patient risks, benefits and alternatives of laparoscopic possible open chholecysectomy, including but not limited to bleeding, infection , injury to adjacent structures, leak or injury, intraabdominal abscess, need for further procedures, ; alternatives include antibiotics, delayed or no surgery - risks of this include failure of nonoperative therapy, perforation, sepsis, recurrence, . Patient desires to proceed with operation - will take to OR for above. Informed consent signed for same. Thank you for the opportunity to participate in the care of this patient. Code(s): K80.44 - CALCULUS OF BILE DUCT W CHRONIC CHOLECYST W/O OBSTRUCTION (2) Calculus common bile duct with chronic cholecystitis with obstruction Code(s): K80.41 - CALCULUS OF BILE DUCT W CHOLECYSTITIS, UNSP, W OBSTRUCTION (3) Right upper quadrant abdominal pain Code(s): R10.11 - RIGHT UPPER QUADRANT PAIN (4) Biliary calculi, common bile duct Code(s): K80.50 - CALCULUS OF BILE DUCT W/O CHOLANGITIS OR CHOLECYST W/O OBST
--- NOTE | 2017-10-15 18:57 | PN ---
Progress Note, Physician History of Present Illness: Epigastric pain when moving around. No nausea, or vomiting. No appetitis, chills. - Current Medication List Current Medications: Active Medications Carvedilol (Coreg -) 25 mg PO BID [facility] Last Admin: 10/15/17 12:16 Dose: 25 mg Emtricitabine/Tenofovir (Truvada) 1 tab PO DAILY [facility] Last Admin: 10/15/17 12:16 Dose: 1 tab Eplerenone (Eplerenone) 25 mg PO DAILY [facility] Last Admin: 10/15/17 12:16 Dose: 25 mg Piperacillin Sod/Tazobactam (Sod 3.375 gm/ Dextrose) 50 mls @ 100 mls/hr IVPB Q8H-IV [facility] PRN Reason: Protocol Last Admin: 10/15/17 18:40 Dose: 100 mls/hr Lactated Ringer's (Lactated Ringers Solution) 1,000 ml in 1,000 mls @ 125 mls/ hr IV ASDIR [facility] Last Admin: 10/15/17 14:11 Dose: 125 mls/hr Insulin Aspart (Novolog Vial Sliding Scale -) 1 vial SQ ACHS [facility] PRN Reason: Protocol Last Admin: 10/15/17 18:16 Dose: Not Given Morphine Sulfate (Morphine Sulfate) 1 mg IVPUSH Q6H PRN PRN Reason: PAIN LEVEL 7 - 10 Last Admin: 10/15/17 15:54 Dose: 1 mg Ondansetron HCl (Zofran Injection) 8 mg IVPB Q6H PRN PRN Reason: NAUSEA AND/OR VOMITING - Objective Vital Signs: Vital Signs Temperature 98.5 F 10/15/17 16:30 Pulse Rate 82 10/15/17 16:30 Respiratory Rate 20 10/15/17 16:30 Blood Pressure 140/86 10/15/17 16:30 O2 Sat by Pulse Oximetry (%) 96 10/14/17 20:43 Constitutional: Yes: Calm Eyes: Yes: Conjunctiva Clear HENT: Yes: Other (trauma to upper lip, local swelling) Cardiovascular: Yes: Regular Rate and Rhythm Respiratory: Yes: Regular Gastrointestinal: Yes: Normal Bowel Sounds, Tenderness, Tenderness, Epigastrium , Tenderness, Rebound. No: Distention, Melena, Vomiting Neurological: Yes: Alert, Oriented Labs: CBC, BMP 10/15/17 06:00 10/15/17 06:00 INR, PTT INR 1.21 (0.82-1.09) H 10/14/17 06:30 CBCD WBC 5.8 K/mm3 (4.0-10.0) 10/15/17 06:00 RBC 4.61 M/mm3 (4.00-5.60) 10/15/17 06:00 Hgb 13.3 GM/dL (11.7-16.9) 10/15/17 06:00 Hct 40.0 % (35.4-49) 10/15/17 06:00 MCV 86.7 fl (80-96) 10/15/17 06:00 MCHC 33.2 g/dl (32.0-35.9) 10/15/17 06:00 RDW 15.0 % (11.9-15.9) 10/15/17 06:00 Plt Count 141 K/MM3 (134-434) 10/15/17 06:00 MPV 10.3 fl (7.5-11.1) 10/15/17 06:00 CMP Sodium 138 mmol/L (136-145) 10/15/17 06:00 Potassium 3.7 mmol/L (3.5-5.1) 10/15/17 06:00 Chloride 104 mmol/L (98-107) 10/15/17 06:00 Carbon Dioxide 27 mmol/L (21-32) 10/15/17 06:00 Anion Gap 7 (8-16) L 10/15/17 06:00 BUN 14 mg/dL (7-18) D 10/15/17 06:00 Creatinine 0.9 mg/dL (0.7-1.3) 10/15/17 06:00 Creat Clearance w eGFR > 60 (>60) 10/15/17 06:00 Calcium 8.4 mg/dL (8.5-10.1) L 10/15/17 06:00 Total Bilirubin 0.9 mg/dL (0.2-1.0) D 10/15/17 06:00 AST 70 U/L (15-37) H D 10/15/17 06:00 ALT 218 U/L (12-78) H D 10/15/17 06:00 Alkaline Phosphatase 115 U/L (45-117) D 10/15/17 06:00 Total Protein 6.6 g/dl (6.4-8.2) 10/15/17 06:00 Albumin 3.5 g/dl (3.4-5.0) 10/15/17 06:00 Abnormal Lab Results 10/15/17 06:00 Anion Gap 7 L Random Glucose 131 H D Calcium 8.4 L Direct Bilirubin 0.3 H D AST 70 H D ALT 218 H D Total Amylase 962 H Lipase 6516 H Problem List - Problems (1) Abnormal LFTs Code(s): R94.5 - ABNORMAL RESULTS OF LIVER FUNCTION STUDIES (2) Biliary calculi, common bile duct Code(s): K80.50 - CALCULUS OF BILE DUCT W/O CHOLANGITIS OR CHOLECYST W/O OBST (3) Calculus common bile duct with chronic cholecystitis with obstruction Code(s): K80.41 - CALCULUS OF BILE DUCT W CHOLECYSTITIS, UNSP, W OBSTRUCTION (4) Diabetes Code(s): E11.9 - TYPE 2 DIABETES MELLITUS WITHOUT COMPLICATIONS Qualifiers: Diabetes mellitus type: type 2 (5) HTN (hypertension) Code(s): I10 - ESSENTIAL (PRIMARY) HYPERTENSION (6) Acute pancreatitis Code(s): K85.90 - ACUTE PANCREATITIS WITHOUT NECROSIS OR INFECTION, UNSP Assessment/Plan s/p ERCP with sphinctrotomy GS extrsction Acute pancreatitis, mild For cholesystectomy as per Sx NPO IVF @ 5cc/kg/hr Pain and nausea management prn CMP, CBC, lipase in am
[2017-10-15] MEDS: LACTATED RINGERS SOLUTION 1,000 ML/1,000 ML INFUS.BAG IV SCH (20:00)
[2017-10-16] MEDS: PIPERACILLIN/TAZOB 3.375 GM 3.375 GM in DEXTROSE 5%-WATER - 50 ML IVPB SCH ×3 (01:02→19:16)
[2017-10-16] MEDS: LACTATED RINGERS SOLUTION 1,000 ML/1,000 ML INFUS.BAG IV SCH ×2 (01:04→04:40)
--- NOTE | 2017-10-16 03:22 | CONSULT ---
Consult Consult Specialty:: endocrine Referred by:: dr.[email or web address] pagan Reason for Consultation:: daibetes mellitus - History of Present Illness Chief Complaint: abdominal pain History of Present Illness: 47 ymHTN, NIDDM, gallstone pancreatitis, who presents with persistent RUQ pain starting at 4PM on day of admission. 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 History of Recent Travel: No Home Medications - Allergies Allergies/Adverse Reactions: Allergies Allergy/AdvReac Type Severity Reaction Status Date / Time lactose Allergy Verified 10/12/17 17:51 - Home Medications Home Medications: Ambulatory Orders Carvedilol [Coreg -] 25 mg PO BID #0 tablet 05/12/12 Eplerenone 25 mg PO DAILY #0 tablet 05/12/12 Valsartan [Diovan] 320 mg PO DAILY #0 tablet 05/12/12 Emtricitabine/Tenofovir (Tdf) [Truvada 200 mg-300 mg Tablet] 1 each PO DAILY Metformin HCl [Metformin HCl ER] 1,000 mg PO DAILY 10/12/17 Review of Systems - Review of Systems Constitutional: reports: Lethargy, Weakness Eyes: reports: No Symptoms HENT: reports: No Symptoms Neck: reports: No Symptoms Cardiovascular: reports: No Symptoms Respiratory: reports: No Symptoms Gastrointestinal: reports: Bloating, Nausea Breasts: reports: No Symptoms Reported Musculoskeletal: reports: No Symptoms Neurological: reports: No Symptoms Physical Exam Vital Signs: Vital Signs Temperature 99.5 F 10/16/17 01:29 Pulse Rate 93 H 10/16/17 01:29 Respiratory Rate 20 10/16/17 01:29 Blood Pressure 147/89 10/16/17 01:29 O2 Sat by Pulse Oximetry (%) 98 10/15/17 20:35 Constitutional: Yes: Anxious Eyes: Yes: EOM Intact HENT: Yes: Normocephalic Neck: Yes: Trachea Midline Cardiovascular: Yes: Regular Rate and Rhythm Respiratory: Yes: CTA Bilaterally Gastrointestinal: Yes: Normal Bowel Sounds ...Rectal Exam: Yes: Deferred Renal/: Yes: WNL Breast(s): Yes: WNL Musculoskeletal: Yes: WNL Neurological: Yes: Alert, Oriented Labs: CBC, BMP 10/15/17 06:00 10/15/17 06:00 Problem List - Problems (1) Abnormal LFTs Code(s): R94.5 - ABNORMAL RESULTS OF LIVER FUNCTION STUDIES (2) Choledocholithiasis with chronic cholecystitis Code(s): K80.44 - CALCULUS OF BILE DUCT W CHRONIC CHOLECYST W/O OBSTRUCTION (3) Diabetes Code(s): E11.9 - TYPE 2 DIABETES MELLITUS WITHOUT COMPLICATIONS Qualifiers: Diabetes mellitus type: type 2 Assessment/Plan Current Active Problems Abnormal LFTs (Acute) Acute pancreatitis (Acute) Biliary calculi, common bile duct (Acute) Calculus common bile duct with chronic cholecystitis with obstruction (Acute) Choledocholithiasis with chronic cholecystitis (Acute) Diabetes (Acute) HTN (hypertension) (Acute) Hypernatremia (Acute) Preop cardiovascular exam (Acute) Right upper quadrant abdominal pain (Acute) Abnormal Lab Results 10/15/17 06:00 Anion Gap 7 L Random Glucose 131 H D Calcium 8.4 L Direct Bilirubin 0.3 H D AST 70 H D ALT 218 H D C-Reactive Protein 2.9 H Total Amylase 962 H Lipase 6516 H Laboratory Results - last 24 hr 10/15/17 10/15/17 10/15/17 05:50 06:00 06:00 WBC 5.8 RBC 4.61 Hgb 13.3 Hct 40.0 MCV 86.7 MCH 28.8 MCHC 33.2 RDW 15.0 Plt Count 141 MPV 10.3 Neutrophils % 75.1 Lymphocytes % 16.4 Monocytes % 8.1 Eosinophils % 0.2 D Basophils % 0.2 Sodium 138 Potassium 3.7 Chloride 104 Carbon Dioxide 27 Anion Gap 7 L BUN 14 D Creatinine 0.9 Creat Clearance w eGFR > 60 POC Glucometer 132 Random Glucose 131 H D Calcium 8.4 L Total Bilirubin 0.9 D Direct Bilirubin 0.3 H D AST 70 H D ALT 218 H D Alkaline Phosphatase 115 D C-Reactive Protein 2.9 H Total Protein 6.6 Albumin 3.5 Total Amylase 962 H Lipase 6516 H 10/15/17 10/15/17 14:16 21:43 WBC RBC Hgb Hct MCV MCH MCHC RDW Plt Count MPV Neutrophils % Lymphocytes % Monocytes % Eosinophils % Basophils % Sodium Potassium Chloride Carbon Dioxide Anion Gap BUN Creatinine Creat Clearance w eGFR POC Glucometer 116 115 Random Glucose Calcium Total Bilirubin Direct Bilirubin AST ALT Alkaline Phosphatase C-Reactive Protein Total Protein Albumin Total Amylase Lipase Laboratory Tests 10/14/17 10/14/17 10/14/17 06:30 16:58 21:45 BUN Creatinine Creat Clearance w eGFR POC Glucometer 148 136 Hemoglobin A1c % 8.0 H ALT Alkaline Phosphatase Total Amylase Lipase 10/15/17 10/15/17 10/15/17 05:50 06:00 14:16 BUN 14 D Creatinine 0.9 Creat Clearance w eGFR > 60 POC Glucometer 132 116 Hemoglobin A1c % ALT 218 H D Alkaline Phosphatase 115 D Total Amylase 962 H Lipase 6516 H 10/15/17 21:43 BUN Creatinine Creat Clearance w eGFR POC Glucometer 115 Hemoglobin A1c % ALT Alkaline Phosphatase Total Amylase Lipase plan bgm qid while po is limited when lfts improves and appetite diet resumes add glimiperide 2mg daily
[2017-10-16] MEDS: INSULIN SLIDING SCALE (NOVOLOG) 1 VIAL SQ SCH ×4 (06:36→21:01)
[2017-10-16] MEDS ORDERED: BUPIVACAINE HCL/PF 0.5% (5MG/ML) 10 ML VIAL ONE (07:55)
[2017-10-16 08:31] LABS: ALBUMIN 3.3 g/dl (3.4-5.0); ANION GAP 10 (8-16); BLOOD UREA NITROGEN 12 mg/dL (7-18); CALCIUM 8.3 mg/dL (8.5-10.1); CHLORIDE 100 mmol/L (98-107); CO2 28 mmol/L (21-32); GLUCOSE,RANDOM 121 mg/dL (74-106); POTASSIUM 3.4 mmol/L (3.5-5.1); SGPT/ALT 149 U/L (12-78); SODIUM 138 mmol/L (136-145)
[2017-10-16 08:32] LABS: BILIRUBIN,TOTAL 1.6 mg/dL (0.2-1.0)
[2017-10-16 08:37] LABS: ALK PHOS 103 U/L (45-117); CREATININE 0.7 mg/dL (0.7-1.3); SGOT/AST 55 U/L (15-37); TOT PROT 6.5 g/dl (6.4-8.2)
[2017-10-16 08:39] LABS: LIPASE 2281 U/L (73-393)
[2017-10-16 08:54] LABS: BILIRUBIN,DIRECT 0.5 mg/dL (0.0-0.2)
[2017-10-16] MEDS ORDERED: IBUPROFEN 800 MG/8 ML IJ IVPB PRN (09:26)
[2017-10-16] MEDS ORDERED: ONDANSETRON 4 MG/2 ML VIAL IVPUSH PRN (09:26)
--- NOTE | 2017-10-16 09:40 | PN ---
Progress Note, Physician History of Present Illness: Epigastric pain when moving around still present, but improved. Tolerated Lactated Ringer at 300 cc/h overnight. Lipase improved. No nausea, or vomiting. - Current Medication List Current Medications: Active Medications Carvedilol (Coreg -) 25 mg PO BID [facility] Last Admin: 10/15/17 21:45 Dose: 25 mg Emtricitabine/Tenofovir (Truvada) 1 tab PO DAILY [facility] Last Admin: 10/15/17 12:16 Dose: 1 tab Eplerenone (Eplerenone) 25 mg PO DAILY [facility] Last Admin: 10/15/17 12:16 Dose: 25 mg Fentanyl (Sublimaze Injection -) 50 mcg IVPUSH [id number] PRN PRN Reason: PAIN-PACU ORDER X 4 DOSES ONLY Piperacillin Sod/Tazobactam (Sod 3.375 gm/ Dextrose) 50 mls @ 100 mls/hr IVPB Q8H-IV [facility] PRN Reason: Protocol Last Admin: 10/16/17 01:02 Dose: 100 mls/hr Lactated Ringer's (Lactated Ringers Solution) 1,000 ml in 1,000 mls @ 300 mls/ hr IV ASDIR [facility] Last Admin: 10/16/17 04:40 Dose: 300 mls/hr Ibuprofen (Caldolor Injection -) 800 mg IVPB Q6H PRN PRN Reason: Pain - Pacu Insulin Aspart (Novolog Vial Sliding Scale -) 1 vial SQ ACHS [facility] PRN Reason: Protocol Last Admin: 10/16/17 06:36 Dose: Not Given Morphine Sulfate (Morphine Sulfate) 1 mg IVPUSH Q6H PRN PRN Reason: PAIN LEVEL 7 - 10 Last Admin: 10/15/17 15:54 Dose: 1 mg Ondansetron HCl (Zofran Injection) 8 mg IVPB Q6H PRN PRN Reason: NAUSEA AND/OR VOMITING Ondansetron HCl (Zofran Injection) 4 mg IVPUSH Q6H PRN PRN Reason: NAUSEA AND/OR VOMITING - Objective Vital Signs: Vital Signs Temperature 99.3 F 10/16/17 05:00 Pulse Rate 93 H 10/16/17 05:00 Respiratory Rate 20 10/16/17 05:00 Blood Pressure 147/81 10/16/17 05:00 O2 Sat by Pulse Oximetry (%) 98 10/15/17 20:35 Constitutional: Yes: Well Nourished, Calm Gastrointestinal: Yes: Soft, Tenderness. No: Melena, Rectal Bleeding, Vomiting Neurological: Yes: Alert, Oriented Labs: CBC, BMP 10/15/17 06:00 10/16/17 06:00 INR, PTT INR 1.21 (0.82-1.09) H 10/14/17 06:30 Laboratory Last Values WBC 5.8 K/mm3 (4.0-10.0) 10/15/17 06:00 RBC 4.61 M/mm3 (4.00-5.60) 10/15/17 06:00 Hgb 13.3 GM/dL (11.7-16.9) 10/15/17 06:00 Hct 40.0 % (35.4-49) 10/15/17 06:00 MCV 86.7 fl (80-96) 10/15/17 06:00 MCH 28.8 pg (25.7-33.7) 10/15/17 06:00 MCHC 33.2 g/dl (32.0-35.9) 10/15/17 06:00 RDW 15.0 % (11.9-15.9) 10/15/17 06:00 Plt Count 141 K/MM3 (134-434) 10/15/17 06:00 MPV 10.3 fl (7.5-11.1) 10/15/17 06:00 Neutrophils % 75.1 % (42.8-82.8) 10/15/17 06:00 Lymphocytes % 16.4 % (8-40) 10/15/17 06:00 Monocytes % 8.1 % (3.8-10.2) 10/15/17 06:00 Eosinophils % 0.2 % (0-4.5) D 10/15/17 06:00 Basophils % 0.2 % (0-2.0) 10/15/17 06:00 PT with INR 13.70 SEC (9.98-11.88) H 10/14/17 06:30 INR 1.21 (0.82-1.09) H 10/14/17 06:30 PTT (Actin FS) 31.7 SECONDS (26.9-34.4) 10/14/17 06:30 Sodium 138 mmol/L (136-145) 10/16/17 06:00 Potassium 3.4 mmol/L (3.5-5.1) L 10/16/17 06:00 Chloride 100 mmol/L (98-107) 10/16/17 06:00 Carbon Dioxide 28 mmol/L (21-32) 10/16/17 06:00 Anion Gap 10 (8-16) 10/16/17 06:00 BUN 12 mg/dL (7-18) 10/16/17 06:00 Creatinine 0.7 mg/dL (0.7-1.3) D 10/16/17 06:00 Creat Clearance w eGFR > 60 (>60) 10/16/17 06:00 POC Glucometer 121 UNITS (80-120) 10/16/17 06:34 Random Glucose 121 mg/dL (74-106) H 10/16/17 06:00 Hemoglobin A1c % 8.0 % (4.8-6.0) H 10/14/17 06:30 Calcium 8.3 mg/dL (8.5-10.1) L 10/16/17 06:00 Total Bilirubin 1.6 mg/dL (0.2-1.0) H D 10/16/17 06:00 Direct Bilirubin 0.5 mg/dL (0.0-0.2) H D 10/16/17 06:00 AST 55 U/L (15-37) H D 10/16/17 06:00 ALT 149 U/L (12-78) H D 10/16/17 06:00 Alkaline Phosphatase 103 U/L (45-117) 10/16/17 06:00 Troponin I < 0.02 ng/ml (0.00-0.05) 10/12/17 20:40 C-Reactive Protein 2.9 MG/DL (0.00-0.3) H 10/15/17 06:00 Total Protein 6.5 g/dl (6.4-8.2) 10/16/17 06:00 Albumin 3.3 g/dl (3.4-5.0) L 10/16/17 06:00 Total Amylase 614 U/L (25-115) H D 10/16/17 06:00 Lipase 2281 U/L (73-393) H 10/16/17 06:00 Blood Type O POSITIVE 10/12/17 19:52 Antibody Screen Negative 10/12/17 19:52 Problem List - Problems (1) Abnormal LFTs Code(s): R94.5 - ABNORMAL RESULTS OF LIVER FUNCTION STUDIES (2) Biliary calculi, common bile duct Code(s): K80.50 - CALCULUS OF BILE DUCT W/O CHOLANGITIS OR CHOLECYST W/O OBST (3) Calculus common bile duct with chronic cholecystitis with obstruction Code(s): K80.41 - CALCULUS OF BILE DUCT W CHOLECYSTITIS, UNSP, W OBSTRUCTION (4) Diabetes Code(s): E11.9 - TYPE 2 DIABETES MELLITUS WITHOUT COMPLICATIONS Qualifiers: Diabetes mellitus type: type 2 (5) HTN (hypertension) Code(s): I10 - ESSENTIAL (PRIMARY) HYPERTENSION (6) Acute pancreatitis Code(s): K85.90 - ACUTE PANCREATITIS WITHOUT NECROSIS OR INFECTION, UNSP Assessment/Plan s/p ERCP with sphinctrotomy GS extraction Acute pancreatitis, mild For cholesystectomy as per Sx NPO IVF 150 cc an hour Pain and nausea management prn
[2017-10-16] MEDS ORDERED: PROPOFOL 20 ML ONE ×2 (09:41)
[2017-10-16] MEDS ORDERED: fentaNYL CITRATE 250 MCG/5 ML VIAL ONE (09:41)
[2017-10-16] MEDS ORDERED: LIDOCAINE HCL/PF 2% SDV 5ML VIAL ONE (09:41)
[2017-10-16] MEDS ORDERED: MIDAZOLAM HCL 2 MG/2 ML SINGLE DOSE VIAL ONE (09:42)
[2017-10-16] MEDS ORDERED: ROCURONIUM BROMIDE 50 MG/5 ML VIAL ONE ×2 (09:42→10:28)
[2017-10-16] MEDS ORDERED: PIPERACILLIN/TAZOBACTAM 3.375 GM VIAL IVPB ONE ×2 (09:47→18:27)
[2017-10-16] MEDS ORDERED: ONDANSETRON 4 MG/2 ML VIAL ONE (10:24)
[2017-10-16] MEDS ORDERED: GLYCOPYRROLATE 0.2 MG/1 ML VIAL ONE (10:25)
[2017-10-16] MEDS ORDERED: NEOSTIGMINE METHYLSULFATE 0.5 MG/ML - 10 ML MDV ONE (10:25)
[2017-10-16] MEDS: CARVEDILOL 25 MG TABLET (FP) PO SCH ×2 (10:48→21:04)
[2017-10-16] MEDS ORDERED: BUPIVACAINE HCL/PF 0.5% (5MG/ML) 10 ML VIAL IJ ONE ×2 (12:15)
--- NOTE | 2017-10-16 13:22 | OP ---
Operative Note - Note: Operative Date: 10/16/17 Pre-Operative Diagnosis: Ventral hernia and acute choledocholithiasis and post ERCP pancreatitis Operation: Laparoscopic cholecystectomy and Repair of Ventral Hernia Post-Operative Diagnosis: Same as Pre-op Surgeon: Thierno Moreau Shot Polisher: Rakesh Richard Anesthesiologist/CONTINUOUS PROCESS ROTARY DRUM TANNER: Rowan Vieira Anesthesia: General, Local Specimens Removed: hernia sac and gallbladder with stones Estimated Blood Loss (mls): 25 Fluid Volume Replaced (mls): 1,500 Operative Report Dictated: Yes
[2017-10-16] MEDS ORDERED: morphine SULFATE 4 MG/ML VIAL IVPUSH PRN (13:26)
[2017-10-16] MEDS ORDERED: LACTATED RINGERS SOLUTION 1,000 ML/1,000 ML INFUS.BAG IV SCH (13:26)
[2017-10-16] MEDS ORDERED: ONDANSETRON 4 MG/2 ML VIAL IVPB PRN (13:26)
[2017-10-16] MEDS ORDERED: ACETAMINOPHEN 1000 MG/100 ML VIAL (NON FORMULARY) IVPB PRN (13:56)
[2017-10-16] MEDS ORDERED: ACETAMINOPHEN 1000 MG/100 ML VIAL (NON FORMULARY) IVPB ONE (15:15)
[2017-10-16] MEDS: EMTRICITABINE 200MG/TENOFOVIR 300MG PO SCH (17:11)
[2017-10-16] MEDS: EPLERENONE 25 MG TABLET PO SCH (17:11)
[2017-10-16] MEDS: ELECTROLYTE-148 SOLN 1,000 ML IV SCH (17:47)
[2017-10-16] MEDS ORDERED: PIPERACILLIN/TAZOB 3.375 GM 3.375 GM in DEXTROSE 5%-WATER - 50 ML IVPB SCH (18:00)
[2017-10-16] MEDS ORDERED: DEXTROSE 5%-WATER - 50 ML IVPB ONE (18:27)
[2017-10-17] MEDS: ELECTROLYTE-148 SOLN 1,000 ML IV SCH ×3 (01:10→14:20)
[2017-10-17] MEDS: PIPERACILLIN/TAZOB 3.375 GM 3.375 GM in DEXTROSE 5%-WATER - 50 ML IVPB SCH ×3 (01:11→17:12)
[2017-10-17] MEDS: INSULIN SLIDING SCALE (NOVOLOG) 1 VIAL SQ SCH ×4 (06:09→21:25)
[2017-10-17 07:35] LABS: BASO % 0.1 % (0-2.0); EOS % 0.9 % (0-4.5); HEMATOCRIT 37.2 % (35.4-49); HEMOGLOBIN 12.3 GM/dL (11.7-16.9); LYMPH % 10.4 % (8-40); MCH 28.6 pg (25.7-33.7); MCHC 32.9 g/dl (32.0-35.9); MEAN CELL VOLUME 86.7 fl (80-96); MEAN PLT VOLUME 9.8 fl (7.5-11.1); NEUT % 77.6 % (42.8-82.8); PLATELET COUNT 134 K/MM3 (134-434); RDW 14.6 % (11.9-15.9); WHITE BLOOD COUNT 11.1 K/mm3 (4.0-10.0)
[2017-10-17 08:23] LABS: CHLORIDE 100 mmol/L (98-107); POTASSIUM 3.4 mmol/L (3.5-5.1); SODIUM 140 mmol/L (136-145)
[2017-10-17 08:32] LABS: ALBUMIN 2.8 g/dl (3.4-5.0); ALK PHOS 97 U/L (45-117); AMYLASE 251 U/L (25-115); ANION GAP 12 (8-16); BILIRUBIN,DIRECT 0.6 mg/dL (0.0-0.2); BILIRUBIN,TOTAL 1.5 mg/dL (0.2-1.0); BLOOD UREA NITROGEN 12 mg/dL (7-18); CALCIUM 8.2 mg/dL (8.5-10.1); CO2 28 mmol/L (21-32); CREATININE 0.8 mg/dL (0.7-1.3); GLUCOSE,RANDOM 107 mg/dL (74-106); SGOT/AST 125 U/L (15-37); SGPT/ALT 176 U/L (12-78); TOT PROT 6.1 g/dl (6.4-8.2)
--- NOTE | 2017-10-17 08:46 | PN ---
Progress Note, Physician Chief Complaint: POD #1 s/p lap rafal - Current Medication List Current Medications: Active Medications Carvedilol (Coreg -) 25 mg PO BID [facility] Last Admin: 10/16/17 21:04 Dose: 25 mg Emtricitabine/Tenofovir (Truvada) 1 tab PO DAILY [facility] Eplerenone (Eplerenone) 25 mg PO DAILY [facility] Piperacillin Sod/Tazobactam (Sod 3.375 gm/ Dextrose) 50 mls @ 100 mls/hr IVPB Q8H-IV [facility] PRN Reason: Protocol Stop: 10/20/17 18:29 Last Admin: 10/17/17 01:11 Dose: 100 mls/hr Parenteral Electrolytes (Plasma-Lyte 148 -) 1,000 mls @ 125 mls/hr IV ASDIR [facility] Last Admin: 10/17/17 01:10 Dose: 125 mls/hr Metronidazole (Flagyl 500mg Premixed Ivpb -) 500 mg in 100 mls @ 100 mls/hr IVPB Q8H-IV [facility] Last Admin: 10/17/17 02:02 Dose: 100 mls/hr Insulin Aspart (Novolog Vial Sliding Scale -) 1 vial SQ ACHS [facility] PRN Reason: Protocol Last Admin: 10/17/17 06:09 Dose: Not Given Morphine Sulfate (Morphine Sulfate) 1 mg IVPUSH Q6H PRN PRN Reason: PAIN LEVEL 7 - 10 Ondansetron HCl (Zofran Injection) 8 mg IVPB Q6H PRN PRN Reason: NAUSEA AND/OR VOMITING - Objective Vital Signs: Vital Signs Temperature 98.5 F 10/17/17 06:00 Pulse Rate 89 10/17/17 06:00 Respiratory Rate 20 10/17/17 06:00 Blood Pressure 148/87 10/17/17 06:00 O2 Sat by Pulse Oximetry (%) 100 10/16/17 20:50 Labs: CBC, BMP 10/17/17 06:00 INR, PTT INR 1.21 (0.82-1.09) H 10/14/17 06:30 Assessment/Plan Doing well after GA for lap rafal. No anesthetic issues- continue current care
[2017-10-17 09:24] LABS: LIPASE 654 U/L (73-393)
[2017-10-17] MEDS ORDERED: PT OWN MED DRAWER 7, Y5N ONE (09:55)
[2017-10-17] MEDS ORDERED: DEXTROSE 5%-WATER - 50 ML IVPB ONE ×2 (09:55→16:44)
[2017-10-17] MEDS ORDERED: PIPERACILLIN/TAZOBACTAM 3.375 GM VIAL IVPB ONE ×2 (09:55→16:43)
[2017-10-17] MEDS: CARVEDILOL 25 MG TABLET (FP) PO SCH ×2 (10:05→21:25)
[2017-10-17] MEDS: EMTRICITABINE 200MG/TENOFOVIR 300MG PO SCH (10:05)
[2017-10-17] MEDS: EPLERENONE 25 MG TABLET PO SCH (10:05)
--- NOTE | 2017-10-17 11:08 | PN ---
Progress Note, Physician Chief Complaint: Ventral hernia and acute choledocholithiasis and post ERCP pancreatitis History of Present Illness: s/p lap choley and ventral hernia repair - Current Medication List Current Medications: Active Medications Carvedilol (Coreg -) 25 mg PO BID [facility] Last Admin: 10/17/17 10:05 Dose: 25 mg Emtricitabine/Tenofovir (Truvada) 1 tab PO DAILY [facility] Last Admin: 10/17/17 10:05 Dose: 1 tab Eplerenone (Eplerenone) 25 mg PO DAILY [facility] Last Admin: 10/17/17 10:05 Dose: 25 mg Piperacillin Sod/Tazobactam (Sod 3.375 gm/ Dextrose) 50 mls @ 100 mls/hr IVPB Q8H-IV [facility] PRN Reason: Protocol Stop: 10/20/17 18:29 Last Admin: 10/17/17 10:06 Dose: 100 mls/hr Parenteral Electrolytes (Plasma-Lyte 148 -) 1,000 mls @ 125 mls/hr IV ASDIR [facility] Last Admin: 10/17/17 10:09 Dose: 125 mls/hr Metronidazole (Flagyl 500mg Premixed Ivpb -) 500 mg in 100 mls @ 100 mls/hr IVPB Q8H-IV [facility] Last Admin: 10/17/17 10:06 Dose: 100 mls/hr Insulin Aspart (Novolog Vial Sliding Scale -) 1 vial SQ ACHS [facility] PRN Reason: Protocol Last Admin: 10/17/17 06:09 Dose: Not Given Morphine Sulfate (Morphine Sulfate) 1 mg IVPUSH Q6H PRN PRN Reason: PAIN LEVEL 7 - 10 Ondansetron HCl (Zofran Injection) 8 mg IVPB Q6H PRN PRN Reason: NAUSEA AND/OR VOMITING - Objective Vital Signs: Vital Signs Temperature 99.1 F 10/17/17 10:00 Pulse Rate 85 10/17/17 10:00 Respiratory Rate 18 10/17/17 10:00 Blood Pressure 141/77 10/17/17 10:00 O2 Sat by Pulse Oximetry (%) 100 10/16/17 20:50 Constitutional: Yes: Well Nourished, No Distress, Calm Cardiovascular: Yes: Regular Rate and Rhythm Respiratory: Yes: Regular Gastrointestinal: Yes: Soft Musculoskeletal: Yes: WNL Extremities: Yes: WNL Edema: No Peripheral Pulses WNL: Yes Neurological: Yes: Alert, Oriented Psychiatric: Yes: Alert, Oriented Labs: CBC, BMP 10/17/17 06:00 10/17/17 06:00 INR, PTT INR 1.21 (0.82-1.09) H 10/14/17 06:30 Problem List - Problems (1) Biliary calculi, common bile duct Assessment/Plan: -Surgical consult -for choleycystectomy Code(s): K80.50 - CALCULUS OF BILE DUCT W/O CHOLANGITIS OR CHOLECYST W/O OBST (2) Diabetes Assessment/Plan: -A1c at 8.0 -BGM -Diabetic diet once he is advanced from clear liquids -metformin on hold during inpatient status -Novolog sliding scale -endocrinology consult -RD consult Code(s): E11.9 - TYPE 2 DIABETES MELLITUS WITHOUT COMPLICATIONS Qualifiers: Diabetes mellitus type: type 2 (3) HTN (hypertension) Assessment/Plan: -controlled at this time Code(s): I10 - ESSENTIAL (PRIMARY) HYPERTENSION (4) Hypernatremia Assessment/Plan: -resolved Code(s): E87.0 - HYPEROSMOLALITY AND HYPERNATREMIA (5) Acute pancreatitis Code(s): K85.90 - ACUTE PANCREATITIS WITHOUT NECROSIS OR INFECTION, UNSP (6) Hypokalemia Assessment/Plan: -KCl supplement Code(s): E87.6 - HYPOKALEMIA Assessment/Plan see problem list
[2017-10-17] MEDS ORDERED: ACETAMINOPHEN 325 MG TABLET (FP) PO PRN (11:32)
[2017-10-17] MEDS ORDERED: traMADol HCL 50 MG TABLET PO PRN (11:33)
[2017-10-17] MEDS ORDERED: POTASSIUM CHLORIDE 10 MEQ in SODIUM CHLORIDE 100 ML IVPB SCH (12:00)
[2017-10-17] MEDS ORDERED: POTASSIUM CHLORIDE 20 MEQ in SODIUM CHLORIDE 250 ML IVPB ONE (13:00)
--- NOTE | 2017-10-17 13:59 | PN ---
Progress Note, Physician History of Present Illness: S/P cholecystectomy No c/o abdominal pain Tolerating liquids + BM No c/o fever/ chills Low grade temp noted WBC slightly elevated LFTs elevated Lipase, improved - Current Medication List Current Medications: Active Medications Acetaminophen (Tylenol -) 650 mg PO Q6H PRN PRN Reason: PAIN LEVEL 1 - 3 Carvedilol (Coreg -) 25 mg PO BID [facility] Last Admin: 10/17/17 10:05 Dose: 25 mg Emtricitabine/Tenofovir (Truvada) 1 tab PO DAILY [facility] Last Admin: 10/17/17 10:05 Dose: 1 tab Eplerenone (Eplerenone) 25 mg PO DAILY [facility] Last Admin: 10/17/17 10:05 Dose: 25 mg Piperacillin Sod/Tazobactam (Sod 3.375 gm/ Dextrose) 50 mls @ 100 mls/hr IVPB Q8H-IV [facility] PRN Reason: Protocol Stop: 10/20/17 18:29 Last Admin: 10/17/17 10:06 Dose: 100 mls/hr Parenteral Electrolytes (Plasma-Lyte 148 -) 1,000 mls @ 125 mls/hr IV ASDIR [facility] Last Admin: 10/17/17 10:09 Dose: 125 mls/hr Metronidazole (Flagyl 500mg Premixed Ivpb -) 500 mg in 100 mls @ 100 mls/hr IVPB Q8H-IV [facility] Last Admin: 10/17/17 10:06 Dose: 100 mls/hr Potassium Chloride 20 meq/ (Sodium Chloride) 260 mls @ 130 mls/hr IVPB ONCE ONE Stop: 10/17/17 14:59 Insulin Aspart (Novolog Vial Sliding Scale -) 1 vial SQ ACHS [facility] PRN Reason: Protocol Last Admin: 10/17/17 11:54 Dose: Not Given Morphine Sulfate (Morphine Sulfate) 1 mg IVPUSH Q6H PRN PRN Reason: PAIN LEVEL 7 - 10 Ondansetron HCl (Zofran Injection) 8 mg IVPB Q6H PRN PRN Reason: NAUSEA AND/OR VOMITING Tramadol HCl (Ultram -) 50 mg PO Q8H PRN PRN Reason: PAIN LEVEL 4 - 6 - Objective Vital Signs: Vital Signs Temperature 99.1 F 10/17/17 10:00 Pulse Rate 85 10/17/17 10:00 Respiratory Rate 18 18 10:00 Blood Pressure 141/77 10/17/17 10:00 O2 Sat by Pulse Oximetry (%) 100 10/16/17 20:50 Constitutional: Yes: No Distress Cardiovascular: Yes: Regular Rate and Rhythm, S1 Respiratory: Yes: CTA Bilaterally Gastrointestinal: Yes: Normal Bowel Sounds, Soft. No: Tenderness Edema: No Labs: CBC, BMP 10/17/17 06:00 10/17/17 06:00 INR, PTT INR 1.21 (0.82-1.09) H 10/14/17 06:30 Assessment/Plan S/P Cholecystectomy Pancreatitis Elevated LFTs, amylase/ lipase- improved Continue empiric zosyn aurelia-operatively
--- NOTE | 2017-10-17 18:15 | PN ---
Progress Note, Physician Chief Complaint: abdominal pain History of Present Illness: 47 yo man PMH HTN, NIDDM, gallstone pancreatitis, who presents with persistent RUQ pain starting at 4PM on day of admission. He has had prior episode of gallstone pancreatitis and cholelithiasis. S/p ERCP and Lap Gabriela, he reports some abdominal pain. he is ambulating. Passing BM and stool. He is on clears. - Current Medication List Current Medications: Active Medications Acetaminophen (Tylenol -) 650 mg PO Q6H PRN PRN Reason: PAIN LEVEL 1 - 3 Carvedilol (Coreg -) 25 mg PO BID [facility] Last Admin: 10/17/17 10:05 Dose: 25 mg Emtricitabine/Tenofovir (Truvada) 1 tab PO DAILY [facility] Last Admin: 10/17/17 10:05 Dose: 1 tab Eplerenone (Eplerenone) 25 mg PO DAILY [facility] Last Admin: 10/17/17 10:05 Dose: 25 mg Piperacillin Sod/Tazobactam (Sod 3.375 gm/ Dextrose) 50 mls @ 100 mls/hr IVPB Q8H-IV [facility] PRN Reason: Protocol Stop: 10/20/17 18:29 Last Admin: 10/17/17 17:12 Dose: 100 mls/hr Parenteral Electrolytes (Plasma-Lyte 148 -) 1,000 mls @ 125 mls/hr IV ASDIR [facility] Last Admin: 10/17/17 14:20 Dose: Not Given Metronidazole (Flagyl 500mg Premixed Ivpb -) 500 mg in 100 mls @ 100 mls/hr IVPB Q8H-IV [facility] Last Admin: 10/17/17 17:12 Dose: 100 mls/hr Insulin Aspart (Novolog Vial Sliding Scale -) 1 vial SQ ACHS [facility] PRN Reason: Protocol Last Admin: 10/17/17 17:11 Dose: Not Given Morphine Sulfate (Morphine Sulfate) 1 mg IVPUSH Q6H PRN PRN Reason: PAIN LEVEL 7 - 10 Ondansetron HCl (Zofran Injection) 8 mg IVPB Q6H PRN PRN Reason: NAUSEA AND/OR VOMITING Tramadol HCl (Ultram -) 50 mg PO Q8H PRN PRN Reason: PAIN LEVEL 4 - 6 - Objective Vital Signs: Vital Signs Temperature 100.2 F H 10/17/17 15:11 Pulse Rate 91 H 10/17/17 15:11 Respiratory Rate 20 10/17/17 15:11 Blood Pressure 159/96 10/17/17 15:11 O2 Sat by Pulse Oximetry (%) 95 10/17/17 10:00 Vital Signs Period Temp Pulse Resp BP Sys/Hinojosa Pulse Ox Last 24 Hr 98.5 F-100.3 F 85-91 18-20 141-159/77-96 95-100 Constitutional: Yes: No Distress, Calm Eyes: Yes: Conjunctiva Clear, EOM Intact HENT: Yes: Atraumatic, Normocephalic Neck: Yes: Supple, Trachea Midline Cardiovascular: Yes: Regular Rate and Rhythm Respiratory: Yes: Regular, CTA Bilaterally Gastrointestinal: Yes: Normal Bowel Sounds, Soft, Tenderness (perimubilical) Wound/Incision: Yes: Clean/Dry, Well Approximated. No: Draining, Bleeding Neurological: Yes: Alert, Oriented Psychiatric: Yes: Alert, Oriented Labs: CBC, BMP 10/17/17 06:00 10/17/17 06:00 INR, PTT INR 1.21 (0.82-1.09) H 10/14/17 06:30 Problem List - Problems (1) Choledocholithiasis with chronic cholecystitis Assessment/Plan: 47 yo male MMP with choledocholithiasis with acute on chronic cholecystitis, Appreciate cardiology input. ERCP found two stones in CBD, Lipase now 6500--> 2200-->650. POD #1 s/p Laparoscopic Cholecystectomy and umbilical hernia repair , Low grade temp 100.3, otherwise doing well dressings changed. Advance diet as tolerated adequate analgesia OOB and ambulate encousrge IS Trend labs will follow Code(s): K80.44 - CALCULUS OF BILE DUCT W CHRONIC CHOLECYST W/O OBSTRUCTION (2) Calculus common bile duct with chronic cholecystitis with obstruction Code(s): K80.41 - CALCULUS OF BILE DUCT W CHOLECYSTITIS, UNSP, W OBSTRUCTION (3) Right upper quadrant abdominal pain Code(s): R10.11 - RIGHT UPPER QUADRANT PAIN (4) Biliary calculi, common bile duct Code(s): K80.50 - CALCULUS OF BILE DUCT W/O CHOLANGITIS OR CHOLECYST W/O OBST
[2017-10-18] MEDS: ELECTROLYTE-148 SOLN 1,000 ML IV SCH (01:16)
[2017-10-18] MEDS: PIPERACILLIN/TAZOB 3.375 GM 3.375 GM in DEXTROSE 5%-WATER - 50 ML IVPB SCH ×2 (01:19→11:22)
[2017-10-18] MEDS ORDERED: PIPERACILLIN/TAZOBACTAM 3.375 GM VIAL IVPB ONE ×2 (01:21→11:16)
[2017-10-18] MEDS ORDERED: DEXTROSE 5%-WATER - 50 ML IVPB ONE ×2 (01:22→11:17)
[2017-10-18 06:03] VITALS: TEMP 100.4
[2017-10-18] MEDS: INSULIN SLIDING SCALE (NOVOLOG) 1 VIAL SQ SCH ×2 (06:16→12:09)
--- NOTE | 2017-10-18 08:58 | PATH ---
Surgical Pathology Report Patient Name: EDU FIERRO Med. Rec. #: [id number] /Age/Gender: 1970 (Age: 47) / M Account: [id number] Location: [facility] MED/SURG Taken: 10/16/2017 Received: 10/16/2017 Reported: 10/18/2017 Physicians: Celia Bello M.D. Specimen(s) Received A: GALLBLADDER AND STONES B: UMBILICAL HERNIA SAC Clinical History Umbilical hernia, choledocholithiasis Final Diagnosis A. GALLBLADDER, CHOLECYSTECTOMY: CHRONIC CHOLECYSTITIS AND CHOLELITHIASIS. B. SOFT TISSUE, UMBILICAL, EXCISION: FIBROMEMBRANOUS TISSUE CONSISTENT WITH HERNIA SAC, AND BENIGN ADIPOSE TISSUE. Electronically Signed Demetrius Emmanuel M.D. Gross Description A. Received in formalin, labeled "gallbladder and stones," is an 8.0 x 2.7 x 2.3 cm. gallbladder with a 0.2 cm. in length portion of cystic duct attached. The outer surface is short-hernandez with a large defect and varies from smooth to shaggy. The lumen contains green, tenacious bile as well as multiple black and green, irregular to fragmented choleliths ranging from 0.1-3.0 cm in greatest dimension. The mucosa is short-red and focally eroded. The wall of the gallbladder averages 0.1 cm. in thickness. Financial Services Assistant sections are submitted in one cassette. B. Received in formalin labeled "umbilical hernia sac," is a 3.3 x 2.0 x 1.2 cm red-brown, irregular portion of fibromembranous tissue, consistent with a hernia sac. Financial Services Assistant sections are submitted in one cassette. /10/16/2017 [facility]10/16/2017
[2017-10-18 09:35] VITALS: BP 153/89; PULSE 67
[2017-10-18] MEDS: EPLERENONE 25 MG TABLET PO SCH (11:23)
[2017-10-18] MEDS: CARVEDILOL 25 MG TABLET (FP) PO SCH (11:23)
[2017-10-18] MEDS: EMTRICITABINE 200MG/TENOFOVIR 300MG PO SCH (11:23)
--- NOTE | 2017-10-18 13:14 | PN ---
Progress Note, Physician Chief Complaint: abdominal pain History of Present Illness: 47 yo man PMH HTN, NIDDM, gallstone pancreatitis, who presents with persistent RUQ pain starting at 4PM on day of admission. He has had prior episode of gallstone pancreatitis and cholelithiasis. S/p ERCP and Lap Gabriela, he reports some abdominal pain. he is ambulating. Passing BM and stools. tolerating regular diet. asking to be discharged - Current Medication List Current Medications: Active Medications Acetaminophen (Tylenol -) 650 mg PO Q6H PRN PRN Reason: PAIN LEVEL 1 - 3 Carvedilol (Coreg -) 25 mg PO BID [facility] Last Admin: 10/18/17 11:23 Dose: 25 mg Emtricitabine/Tenofovir (Truvada) 1 tab PO DAILY [facility] Last Admin: 10/18/17 11:23 Dose: 1 tab Eplerenone (Eplerenone) 25 mg PO DAILY [facility] Last Admin: 10/18/17 11:23 Dose: 25 mg Piperacillin Sod/Tazobactam (Sod 3.375 gm/ Dextrose) 50 mls @ 100 mls/hr IVPB Q8H-IV DEMETRIUS PRN Reason: Protocol Stop: 10/20/17 18:29 Last Admin: 10/18/17 11:22 Dose: 100 mls/hr Parenteral Electrolytes (Plasma-Lyte 148 -) 1,000 mls @ 125 mls/hr IV ASDIR [facility] Last Admin: 10/18/17 01:16 Dose: 125 mls/hr Metronidazole (Flagyl 500mg Premixed Ivpb -) 500 mg in 100 mls @ 100 mls/hr IVPB Q8H-IV [facility] Last Admin: 10/18/17 11:22 Dose: 100 mls/hr Insulin Aspart (Novolog Vial Sliding Scale -) 1 vial SQ ACHS [facility] PRN Reason: Protocol Last Admin: 10/18/17 12:09 Dose: Not Given Morphine Sulfate (Morphine Sulfate) 1 mg IVPUSH Q6H PRN PRN Reason: PAIN LEVEL 7 - 10 Ondansetron HCl (Zofran Injection) 8 mg IVPB Q6H PRN PRN Reason: NAUSEA AND/OR VOMITING Tramadol HCl (Ultram -) 50 mg PO Q8H PRN PRN Reason: PAIN LEVEL 4 - 6 - Objective Vital Signs: Vital Signs Temperature 100.4 F H 10/18/17 06:00 Pulse Rate 67 10/18/17 09:31 Respiratory Rate 18 10/18/17 09:31 Blood Pressure 153/89 10/18/17 09:31 O2 Sat by Pulse Oximetry (%) 95 10/17/17 20:54 Vital Signs Period Temp Pulse Resp BP Sys/Hinojosa Pulse Ox Last 24 Hr 99.7 F-100.4 F 67-91 18-20 143-159/71-96 95 Constitutional: Yes: Well Nourished, No Distress, Calm Eyes: Yes: Conjunctiva Clear, EOM Intact HENT: Yes: Atraumatic, Normocephalic Neck: Yes: Supple, Trachea Midline Cardiovascular: Yes: Regular Rate and Rhythm, S1, S2 Respiratory: Yes: Regular, CTA Bilaterally Gastrointestinal: Yes: Normal Bowel Sounds, Soft. No: Tenderness ...Rectal Exam: Yes: Deferred Extremities: No: Cool, Cyanosis Wound/Incision: Yes: Clean/Dry, Well Approximated, [place] Intact, Dressing Dry and Intact Labs: CBC, BMP 10/17/17 06:00 10/17/17 06:00 INR, PTT INR 1.21 (0.82-1.09) H 10/14/17 06:30 Problem List - Problems (1) Choledocholithiasis with chronic cholecystitis Assessment/Plan: 47 yo male MMP with choledocholithiasis with acute on chronic cholecystitis, Appreciate cardiology input. ERCP found two stones in CBD, Lipase now 6500--> 2200-->650. POD #2 s/p Laparoscopic Cholecystectomy and umbilical hernia repair , low grade temp 100.4, otherwise doing well dressings changed. Advance diet as tolerated adequate analgesia OOB and ambulate encousrge IS Trend labs discharge at the discretion of primary team Augmentin X7 days? will defer to ID Code(s): K80.44 - CALCULUS OF BILE DUCT W CHRONIC CHOLECYST W/O OBSTRUCTION (2) Calculus common bile duct with chronic cholecystitis with obstruction Code(s): K80.41 - CALCULUS OF BILE DUCT W CHOLECYSTITIS, UNSP, W OBSTRUCTION (3) Right upper quadrant abdominal pain Code(s): R10.11 - RIGHT UPPER QUADRANT PAIN (4) Biliary calculi, common bile duct Code(s): K80.50 - CALCULUS OF BILE DUCT W/O CHOLANGITIS OR CHOLECYST W/O OBST
--- NOTE | 2017-10-18 14:06 | PN ---
Progress Note, Physician History of Present Illness: S/P cholecystectomy/ hernia repair Feels well No c/o abdominal pain Tolerating diet + BM Low grade temp noted WBC slightly elevated - Current Medication List Current Medications: Active Medications Acetaminophen (Tylenol -) 650 mg PO Q6H PRN PRN Reason: PAIN LEVEL 1 - 3 Carvedilol (Coreg -) 25 mg PO BID [facility] Last Admin: 10/18/17 11:23 Dose: 25 mg Emtricitabine/Tenofovir (Truvada) 1 tab PO DAILY [facility] Last Admin: 10/18/17 11:23 Dose: 1 tab Eplerenone (Eplerenone) 25 mg PO DAILY [facility] Last Admin: 10/18/17 11:23 Dose: 25 mg Piperacillin Sod/Tazobactam (Sod 3.375 gm/ Dextrose) 50 mls @ 100 mls/hr IVPB Q8H-IV DEMETRIUS PRN Reason: Protocol Stop: 10/20/17 18:29 Last Admin: 10/18/17 11:22 Dose: 100 mls/hr Parenteral Electrolytes (Plasma-Lyte 148 -) 1,000 mls @ 125 mls/hr IV ASDIR [facility] Last Admin: 10/18/17 01:16 Dose: 125 mls/hr Metronidazole (Flagyl 500mg Premixed Ivpb -) 500 mg in 100 mls @ 100 mls/hr IVPB Q8H-IV [facility] Last Admin: 10/18/17 11:22 Dose: 100 mls/hr Insulin Aspart (Novolog Vial Sliding Scale -) 1 vial SQ ACHS [facility] PRN Reason: Protocol Last Admin: 10/18/17 12:09 Dose: Not Given Morphine Sulfate (Morphine Sulfate) 1 mg IVPUSH Q6H PRN PRN Reason: PAIN LEVEL 7 - 10 Ondansetron HCl (Zofran Injection) 8 mg IVPB Q6H PRN PRN Reason: NAUSEA AND/OR VOMITING Tramadol HCl (Ultram -) 50 mg PO Q8H PRN PRN Reason: PAIN LEVEL 4 - 6 - Objective Vital Signs: Vital Signs Temperature 100.4 F H 10/18/17 06:00 Pulse Rate 67 10/18/17 09:31 Respiratory Rate 18 10/18/17 09:31 Blood Pressure 153/89 10/18/17 09:31 O2 Sat by Pulse Oximetry (%) 95 10/17/17 20:54 Constitutional: Yes: No Distress Eyes: Yes: Conjunctiva Clear Cardiovascular: Yes: Regular Rate and Rhythm, S1, S2 Respiratory: Yes: CTA Bilaterally Gastrointestinal: Yes: Normal Bowel Sounds, Soft, Other (Surgical wound with eric in place). No: Tenderness Labs: CBC, BMP 10/17/17 06:00 10/17/17 06:00 INR, PTT INR 1.21 (0.82-1.09) H 10/14/17 06:30 Assessment/Plan S/P Cholecystectomy Pancreatitis Elevated LFTs, amylase/ lipase- improved Discontinue zosyn Augmentin 875mg po bid x 7d Outpatient surgical follow up
--- NOTE | 2017-10-18 14:07 | DS ---
Physical Examination Vital Signs: Vital Signs Temperature 100.4 F H 10/18/17 06:00 Pulse Rate 67 10/18/17 09:31 Respiratory Rate 18 10/18/17 09:31 Blood Pressure 153/89 10/18/17 09:31 O2 Sat by Pulse Oximetry (%) 95 10/17/17 20:54 patient awake alert oriented no abdominal pain nausea vomitting Constitutional: Yes: Calm Cardiovascular: Yes: Regular Rate and Rhythm, S1, S2 Respiratory: Yes: CTA Bilaterally Gastrointestinal: Yes: Normal Bowel Sounds, Soft Edema: No Neurological: Yes: Alert, Oriented Labs: CBC, BMP 10/17/17 06:00 10/17/17 06:00 Discharge Summary Reason For Visit: COMMON BILE DUCT CALCULUS Current Active Problems Abnormal LFTs (Acute) Acute pancreatitis (Acute) Biliary calculi, common bile duct (Acute) Calculus common bile duct with chronic cholecystitis with obstruction (Acute) Choledocholithiasis with chronic cholecystitis (Acute) Diabetes (Acute) HTN (hypertension) (Acute) Hypernatremia (Acute) Hypokalemia (Acute) Preop cardiovascular exam (Acute) Right upper quadrant abdominal pain (Acute) Hospital Course: 47 yo man PMH HTN, NIDDM, gallstone pancreatitis, who presents with persistent RUQ pain starting at 4PM on day of admission. He has had prior episode of gallstone pancreatitis and cholelithiasis. S/p ERCP and Lap Gabriela, he reports some abdominal pain. he is ambulating. Passing BM and stools. tolerating regular diet. asking to be discharged ERCP sphincterotomy and GS extraction S/p lap cholecystectomy acute pancreatitis now lipase trending down LFT trending down Condition: Improved - Instructions Diet, Activity, Other Instructions: Postoperative instructions: You had a laparoscopic cholecystectomy and repair of ventral hernia on 10/16/[address] Thierno Moreau of [facility]. Activity: Resume your usual activities gradually, but no heavy exertion or lifting more than 10-15 pounds for 1 month. Remove dressings 48 hours after surgery; sticky tapes underneath will fall off by themselves. You may shower daily starting then, just pat the incision areas dry. Eat lightly at first, but advance to your usual diet as tolerated. Pain: For pain, you may use and alternate Tylenol (acetaminophen) and/or ibuprofen every 6 hours each as needed; this means that you can take one OR the other at 3-hour intervals. If you are prescribed a Tylenol/narcotic combination for severe pain, use it instead of plain Tylenol as needed and switch back when your pain starts decreasing. Do not take more than 4000mg of acetaminophen in a day. Take medications as prescribed or indicated on the labeling. Follow-up: Call Dr. Moreau' office at [phone] to make your postop appointment (Saturday ~2 weeks after surgery). Clinic is held in the [facility] on the first floor of [facility]. Call the office if you have: * increasing pain not responsive to pain medication * fever of 101F or higher * vomiting * unusual or increasing bleeding or drainage from wounds * increasing redness or swelling at wound sites * inability to urinate Also, see your primary medical doctor within 1-2 weeks. augmentin 875/125 mg po bid for 7 days Referrals: ON STAFF,NOT [Non Staff, Medical] - Disposition: HOME - Home Medications Comprehensive Discharge Medication List: Ambulatory Orders Carvedilol [Coreg -] 25 mg PO BID #0 tablet 05/12/12 Eplerenone 25 mg PO DAILY #0 tablet 05/12/12 Valsartan [Diovan] 320 mg PO DAILY #0 tablet 05/12/12 Emtricitabine/Tenofovir (Tdf) [Truvada 200 mg-300 mg Tablet] 1 each PO DAILY Metformin HCl [Metformin HCl ER] 1,000 mg PO DAILY 10/12/17
--- NOTE | 2017-10-21 19:24 | OP ---
DATE OF OPERATION: 10/16/2017 PREOPERATIVE DIAGNOSES: Choledocholithiasis and a ventral hernia. POSTOPERATIVE DIAGNOSES: Choledocholithiasis and a ventral hernia. PROCEDURE: Laparoscopic cholecystectomy and repair of ventral hernia. ATTENDING SURGEON: Thierno Moreau MD CUPOLA MAN: Rakesh Richard MD ANESTHESIOLOGIST: Rowan Vieira MD ANESTHESIA TYPE: General and local. Local consisted of 0.5% Marcaine. A total of 20 mL was given in an area block fashion. SPECIMENS REMOVED: Hernia sac and gallbladder with stones. ESTIMATED BLOOD LOSS: 25 mL ESTIMATED FLUID VOLUME RECEIVED DURING CASE: 1500. INDICATION: Patient is a 47-year-old male presenting with choledocholithiasis, had an ERCP and extraction of 2 stones, resolution of his pancreatitis. He was then counseled regarding the need for cholecystectomy given his previous history of choledocholithiasis and obstructive gallstone pancreatitis. He also had a supraumbilical hernia which was identified. He was explained the risks, benefits, and alternatives to surgical approach to repair all, signed informed consent, was taken for the procedure. DESCRIPTION OF PROCEDURE: Patient was brought to the operating room, placed in supine position on the operating table with both arms extended at 90 degrees perpendicular to the body's axis. Patient had lower extremities' Venodynes placed to compression device. Patient was induced with general anesthesia, endotracheally intubated without incident by Anesthesia. We then shaved, prepped, and draped the anterior abdominal wall. The right arm was tucked. At which point, we proceeded with a formal timeout, identifying the operative site. Patient received intravenous antibiotics, and a Edwin Hugger was applied. We proceeded then with a formal timeout, identifying the operative site and procedure. With all parties in agreement, we proceeded first with a supraumbilical approach over the maximum point of the palpable hernia on the umbilicus. An incision was made. It was deepened and widened through the subcutaneous tissue. Care was taken to dissect the hernia sac from the surrounding tissue. As we approached the midline, we were able to clear the hernia sac and identify the adjacent midline fascia which appeared somewhat weak. The hernia sac was debrided from its site and passed off for pathologic diagnosis. Once the hernia was opened, it was cleared of intraabdominal viscera, and it was reduced into the abdomen. The remaining fascia had then a figure-of-8 repair across the hernia defect. This would also serve as the primary repair of a direct ventral hernia. The 12-mm Linsey port was then introduced in the abdomen, and a pneumoperitoneum was established. We proceeded then with identification of the gallbladder which appeared massively distended, and the subxiphoid port was then introduced into the abdomen. It was a 5-mm port. We installed two additional 5-mm ports in the right side of the abdomen. With this, the gallbladder was grasped and superiorly retracted cranially towards the left abdomen. With this in place, we began to clear the abdominal adhesions of omentum to the gallbladder. It was cleared from both the liver and the gallbladder's edge until the infundibulum could be identified. Once grasped and retracted towards the right side of the abdomen, the cystic structures began to come into view. They were dissected with a [place] dissector, and a plane was developed, establishing the critical view of both the cystic duct and the cystic artery as they coursed into the gallbladder. They were cleared, and planes developed, and then, they were transected using 5-mm clips on each structure, two towards the patient and one toward the specimen side, and then divided with EndoShears. Once completed, we began to dissect the gallbladder from the liver. This was carried through with an L-hook Bovie cautery from the liver plate near the cystic structures, away towards the tip of the liver. There was a small entry made into the gallbladder with spillage of a small amount of fine stones. Once the gallbladder was freed from the liver's plate, they were retrieved using an Endo Catch bag from the umbilicus, having re-sited the camera to the subxiphoid position. The gallstones, the gallbladder, and bile were sent for pathologic diagnosis confirmation. We then proceeded with fulguration of a small amount of remaining gallbladder dome on the hepatic plate. The site was irrigated copiously with the patient in adequate position. We then returned him to neutral position and removed the trocars. The pneumoperitoneum was relieved. At which point, we proceeded then with irrigation of the trocar sites. The 5-mm trocar sites were closed with 4-0 Polysorb in interrupted fashion. The Linsey entry port at the umbilicus, once the fascial defect had been ablated with a figure-of-8 and pulled tight and tied, additional figure-of-8 sutures were applied both cranially and caudally to complete the primary repair. The skin was then irrigated between layers and then closed with eric. [place] were applied on the vertical midline incision. The skin was cleaned, and sterile dressings were placed. The patient was awoken from general anesthesia having tolerated the procedure well. He was returned to Recovery in stable condition. Counts were correct prior to closure. MD HARRY Valentine/[id number]
== END 2017-10-18 16:17 | disposition home or self-care (01) | DRG 417 ==
LOC: JER 17:48 → JERBED 10-13 00:10 → OBSVTOIN 10-13 01:03 → J7W 10-13 03:02
PROVIDERS: ADMIT Internal Medicine; ATTEND Family Medicine
PROC: 0FC98ZZ Extirpation of Matter from Common Bile Duct, Via Natural or Artificial Opening Endoscopic (ICD-10-PCS; 2017-10-13)
PROC: BF10YZZ Fluoroscopy of Bile Ducts using Other Contrast (ICD-10-PCS; 2017-10-13)
PROC: 0WQF0ZZ Repair Abdominal Wall, Open Approach (ICD-10-PCS; 2017-10-16)
PROC: 0FT44ZZ Resection of Gallbladder, Percutaneous Endoscopic Approach (ICD-10-PCS; principal; 2017-10-16 09:00)
DX: K80.46 Calculus of bile duct with acute and chronic cholecystitis without obstruction (principal); K85.90 Acute pancreatitis without necrosis or infection, unspecified; E87.0 Hyperosmolality and hypernatremia; E11.9 Type 2 diabetes mellitus without complications; Z79.84 Long term (current) use of oral hypoglycemic drugs; I10 Essential (primary) hypertension; D69.6 Thrombocytopenia, unspecified; K40.90 Unilateral inguinal hernia, without obstruction or gangrene, not specified as recurrent; E78.5 Hyperlipidemia, unspecified; K43.9 Ventral hernia without obstruction or gangrene; E87.6 Hypokalemia
CPT/HCPCS: 36415; 71045-TC-FY; 74182-TC; 76000-TC-FY; 76705-TC; 80053; 82150; 82248; 82962; 83036; 83690; 84484; 85025; 85610; 85730; 86140; 86850; 86900; 86901; 87040; 88302-TC; 88304-TC; 93005; 93010; 94010; 94760; 97116-GP; 97161-GP; 99283-25; G0378; J0131; J1100; J7030

== ENCOUNTER 2018-05-07 13:14 | Emergency (ER) | payer OTHER ==
[2018-05-07 13:22] VITALS: BP 148/85; PULSE 68; TEMP 98.5; BMI 28.5
[2018-05-07] MEDS ORDERED: TETRACAINE 0.5% OPHTH SOLN 2 ML BOTTLE OS ONE (14:05)
[2018-05-07] MEDS ORDERED: TETRACAINE 0.5% OPHTH SOLN 2 ML BOTTLE ONE (14:06)
[2018-05-07] MEDS ORDERED: FLUORESCEIN NA 1 EA STRIP OS ONE (14:06)
[2018-05-07] MEDS ORDERED: FLUORESCEIN NA 1 EA STRIP ONE (14:06)
--- NOTE | 2018-05-07 14:16 | PDOC ---
History of Present Illness - General Chief Complaint: Foreign Body (FB) Stated Complaint: LT EYE PAIN Time Seen by Provider: 05/07/18 13:59 - History of Present Illness Initial Comments: 05/07/18 14:13 47-year-old male with a past medical history significant for HIV hypertension and diabetes presents for evaluation of left eye irritation. He states he was driving with the window open his eye began to tear and become irritated he is unsure if he has a foreign body however he does not have a foreign body sensation. He has no other associated symptoms. Past History - Past Medical History Allergies/Adverse Reactions: Allergies Allergy/AdvReac Type Severity Reaction Status Date / Time lactose Allergy Verified 05/07/18 13:57 Home Medications: Ambulatory Orders Carvedilol [Coreg -] 25 mg PO BID #0 tablet 05/12/12 Eplerenone 25 mg PO DAILY #0 tablet 05/12/12 Valsartan [Diovan] 320 mg PO DAILY #0 tablet 05/12/12 Emtricitabine/Tenofovir (Tdf) [Truvada 200 mg-300 mg Tablet] 1 each PO DAILY Metformin HCl [Metformin HCl ER] 1,000 mg PO DAILY 10/12/17 Tobramycin 0.3% Ophth Soln [Tobrex Ophthalmic Solution -] 1 drop OS Q4HWA #1 bottle 05/07/18 Cardiac Disorders: Yes COPD: No Diabetes: Yes (NIDDM) HTN: Yes - Immunization History Immunization Up to Date: Yes - Suicide/Smoking/Psychosocial Hx Smoking Status: No Smoking History: Never smoked Have you smoked in the past 12 months: No Number of Cigarettes Smoked Daily: 0 Information on smoking cessation initiated: No Hx Alcohol Use: No Drug/Substance Use Hx: No Review of Systems - Review of Systems HEENTM: Yes: See HPI, Eye Pain, Tearing All Other Systems: Reviewed and Negative *Physical Exam - Vital Signs Last Vital Signs Temp Pulse Resp BP Pulse Ox 98.5 F 68 16 148/85 98 05/07/18 13:18 05/07/18 13:18 05/07/18 13:18 05/07/18 13:18 05/07/18 13:18 - Physical Exam Comments: 05/07/18 14:14 HEAD: NC/AT EYES: Conjuntiva clear on the right, left conjunctivae is injected, floor seen stain after a cane showed a corneal abrasion at the 9 o'clock position of the left eye lateral aspect no foreign body MS: Full ROM in all joints without edema NEUROLOGIC: No gross sensory or motor deficits, NVID SKIN: Normal color and temperature no lesions or rashes ED Treatment Course - Medications Given in the ED: ED Medications Discontinued Medications Generic Name Dose Route Start Last Admin Trade Name Enrico PRN Reason Stop Dose Admin Fluorescein Sodium 0 ea 05/07/18 14:06 05/07/18 14:08 Fluorets - OS 05/07/18 14:07 1 ea ONCE ONE Administration Tetracaine HCl 1 drop 05/07/18 14:05 05/07/18 14:07 Pontocaine OS 05/07/18 14:06 1 drop ONCE ONE Administration *DC/Admit/Observation/Transfer Diagnosis at time of Disposition: Corneal abrasion - Discharge Dispostion Disposition: HOME Condition at time of disposition: Stable Decision to Admit order: No - Prescriptions Prescriptions: Tobramycin 0.3% Ophth Soln [Tobrex Ophthalmic Solution -] 1 drop OS Q4HWA #1 bottle - Referrals Referrals: Celia Bello MD [Primary Care Provider] - Makenna Clinton MD [Staff Physician] - - Patient Instructions Printed Discharge Instructions: DI for Corneal Abrasion, Corneal Abrasion Additional Instructions: Return to the emergency room should symptoms worsen or go unresolved. Please follow-up with ophthalmology in one to 2 days for further evaluation and treatment options. Please take the antibiotic drops as directed. - Post Discharge Activity
== END 2018-05-07 14:19 | disposition home or self-care (01) ==
LOC: JERFT 13:14
DX: S05.02XA Injury of conjunctiva and corneal abrasion without foreign body, left eye, initial encounter (principal); Z21 Asymptomatic human immunodeficiency virus [HIV] infection status; E11.9 Type 2 diabetes mellitus without complications; I10 Essential (primary) hypertension
CPT/HCPCS: 99281-25

== ENCOUNTER 2019-07-01 23:40 | Emergency (ER) | payer OTHER ==
[2019-07-02 00:15] VITALS: BMI 29.1
--- NOTE | 2019-07-02 01:28 | PDOC ---
History of Present Illness - General Chief Complaint: Injury Stated Complaint: LEFT FOOT INJURY Time Seen by Provider: 07/02/19 01:04 History Source: Patient Exam Limitations: No Limitations - History of Present Illness Initial Comments: 07/02/19 06:59 HPI: 49M PMH HTN, DM presenting after rolling left foot while running for elevator. Currently c/o left lateral foot pain and swelling. Denies numbness, tingling of the area. Denies weakness. No other complaints. Denies f/c, n/v, cp/sob, abd pain, dysuria. PMH as above PCP not in area [facility] officer Past History - Past Medical History Allergies/Adverse Reactions: Allergies Allergy/AdvReac Type Severity Reaction Status Date / Time lactose Allergy Verified 07/02/19 00:15 Home Medications: Ambulatory Orders Carvedilol [Coreg -] 25 mg PO BID #0 tablet 05/12/12 Eplerenone 25 mg PO DAILY #0 tablet 05/12/12 Valsartan [Diovan] 320 mg PO DAILY #0 tablet 05/12/12 Emtricitabine/Tenofovir (Tdf) [Truvada 200 mg-300 mg Tablet] 1 each PO DAILY metFORMIN HCL [Metformin HCl ER] 1,000 mg PO DAILY 10/12/17 Tobramycin 0.3% Ophth Soln [Tobrex Ophthalmic Solution -] 2 drop OS QID #1 drops 05/09/18 Cardiac Disorders: Yes COPD: No Diabetes: Yes (NIDDM) HTN: Yes - Immunization History Immunization Up to Date: Yes - Psycho Social/Smoking Cessation Hx Smoking Status: No Smoking History: Never smoked Have you smoked in the past 12 months: No Number of Cigarettes Smoked Daily: 0 Hx Alcohol Use: No Drug/Substance Use Hx: No Review of Systems - Review of Systems Comments:: 07/02/19 06:59 ROS: CONSTITUTIONAL: Denies F / C RESP: Denies SOB CARD: Denies chest pain, palpitations GI: Denies N / V / D, abdominal pain : Denies dysuria SKIN: Denies rashes NEURO: Denies numbness, tingling, weakness MSK: Endorses left foot pain; denies other joint pain. *Physical Exam - Vital Signs Last Vital Signs Temp Pulse Resp BP Pulse Ox 98.2 F 91 H 18 151/98 98 07/02/19 00:12 07/02/19 00:12 07/02/19 00:12 07/02/19 00:12 07/02/19 00:12 - Physical Exam 07/02/19 06:59 PE: GEN: Well appearing, NAD, comfortable. AAOx3 HEENT: NC/AT, EOMI, PERRLA. No facial asymmetry. Moist mucous membranes. Normal voice. Supple neck w/ FROM. CV: S1/S2, RRR, no m/r/g LUNG: CTAB, no wheezes, crackles, rales, rhonchi. GI: soft, ndnt, +BS, no guarding, no rebound. EXTREMITIES: 2+ distal pulses. No obvious deformities of the LEs. There is soft tissue swelling of the lateral left foot and ankle vs right foot. There is TTP of the lateral left mid-foot. Good cap refill. SKIN: warm, dry, normal turgor PSYCH: normal mood and affect NEURO: Moving all extremities well. Unable to bear weight on left foot 2/2 pain. symmetric sensation. Limited movement of left foot 2/2 pain; wiggles left toes. Procedures - Splinting Splint Location: Left: Foot, Ankle Pre-Proc Neuro Vasc Exam: normal Hand-Made Type: orthoglass Splint Type: Yes: Posterior (LLE; plantar foot to mid calf ) Post-Proc Neuro Vasc Exam: normal Syed Bandage: yes Sling: No Complications: No Post splint xray: No Good repositioning: Yes (splinted in anatomically neutral position ) Progress: 07/02/19 05:29 pt tolerated splinting well webroll applied the left foot up to the midcalf 5" orthoglass applied w/ left foot in neutral position SYED wrap to secure neurovascularly intact pre and post Medical Decision Making - Medical Decision Making 07/02/19 04:55 MDM: 49M c/o left lateral foot pain and swelling after rolling it. - XR left foot and ankle - pain ctrl 07/02/19 05:26 XR shows possible hairline fracture of the left 5th metatarsal one of two views will splint and give ortho f/u crutch education provided to pt at bedside DC home w/ splint, crutches, and ortho f/u Discharge - Discharge Information Problems reviewed: Yes Clinical Impression/Diagnosis: Foot injury Qualifiers: Encounter type: initial encounter Laterality: left Qualified Code(s): S99.922A - Unspecified injury of left foot, initial encounter Condition: Stable Disposition: HOME - Follow up/Referral Referrals: Evens Millan MD [Staff Physician] - Brown Mijares MD [Staff Physician] - Duarte Burris DO [Staff Physician] - ON STAFF,NOT [Primary Care Provider] - - Patient Discharge Instructions Patient Printed Discharge Instructions: DI for Foot Fracture Additional Instructions: Please keep the foot elevated. Please keep the splint dry. Please take tylenol or motrin as needed for pain. Please make an appointment to see the orthopedist. Please use the crutches for walking. please return to the ED with any further concerns or complaints. - Post Discharge Activity Work/Back to School Note: Back to Work
--- NOTE | 2019-07-02 01:31 | PDOC ---
Documentation entered by Allie Sawant SCRIBE, acting as scribe for Virginie Youngblood DO. Virginie Youngblood DO: This documentation has been prepared by the Jese obando Nirvannie, SCRIBE, under my direction and personally reviewed by me in its entirety. I confirm that the documentation accurately reflects all work, treatment, procedures, and medical decision making performed by me. Attending Attestation - Resident Resident Name: Brown Esparza - ED Attending Attestation I have performed the following: I have examined & evaluated the patient, The case was reviewed & discussed with the resident, I agree w/resident's findings & plan, Exceptions are as noted - HPI HPI: 07/02/19 01:34 The patient is a 49 year old male, with a significant past medical history of HTN and DM, who presents to the emergency department with left ankle and foot pain. As per patient, he was running for an elevator at approximately 9pm at which time he inverted his left ankle. He was able to ambulate with pain s/p inversion. Patient notes the pain worsened with associated swelling upon his arrival home, prompting his arrival to the ED. He denies any recent fevers, chills, headache or dizziness. He denies any recent nausea, vomit, diarrhea or constipation. He denies any recent chest pain or shortness of breath. He denies any recent dysuria, frequency, urgency or hematuria. Allergies: lactose - Physicial Exam PE: 07/02/19 01:34 Constitutional: Awake, alert, oriented. No acute distress. Head: Normocephalic. Atraumatic Eyes: PERRL. EOMI. Conjunctivae are not pale. ENT: Mucous membranes are moist and intact. Posterior pharynx without exudates or erythema. Uvula midline. Neck: Supple. Full ROM. No lymphadenopathy. Cardiovascular: Regular rate. Regular rhythm. S1, S2 regular. Distal pulses are 2+ and symmetric. Pulmonary/Chest: No evidence of respiratory distress. Clear to auscultation bilaterally No wheezing, rales or rhonchi. Abdominal: Soft and non-distended. There is no tenderness. No rebound, guarding or rigidity. No organomegaly. No palpable masses. Good bowel sounds. Back: No CVA tenderness. Musculoskeletal: +Tenderness over the left 4th and 5th metatarsals and lateral malleolus. No deformities. No edema. No cyanosis. No clubbing. Full range of motion in all extremities. No calf tenderness. Radial/pedal pulses are intact and 2+ bilaterally Brisk capillary refill. Skin: Skin is warm and dry. No petechiae. No purpura. Neurological: Alert and oriented to person, place, and time. Cranial nerves II -XII are grossly intact. Normal speech. Strength is grossly symmetric. No sensory deficits. Psychiatric: Good eye contact. Normal interaction, affect and behavior. - Medical Decision Making 07/02/19 01:30 I, Dr. Virginie Youngblood, , attest that this document has been prepared under my direction and personally reviewed by me in its entirety. I further attest, that it accurately reflects all work, treatment, procedures and medical decision -making performed by me. a/p: 49yo male with an inversion injury around 9p tonight -running for elevator and inverted his L foot -pain to 4th and 5th metatarsal -soft tissue swelling anterior lateral malleolus -will send for xrays -crutches, pain control, splint 07/02/19 01:53 poss 5th met fx will place in a splint and give ortho follow up Discharge - Discharge Information Problems reviewed: Yes Clinical Impression/Diagnosis: Foot injury Condition: Stable Disposition: HOME - Admission No - Follow up/Referral Referrals: ON STAFF,NOT [Primary Care Provider] - Brown Mijares MD [Staff Physician] - Duarte Burris DO [Staff Physician] - Evens Millan MD [Staff Physician] - - Patient Discharge Instructions Patient Printed Discharge Instructions: DI for Foot Fracture Additional Instructions: Please keep the foot elevated. Please keep the splint dry. Please take tylenol or motrin as needed for pain. Please make an appointment to see the orthopedist. Please use the crutches for walking. please return to the ED with any further concerns or complaints. - Post Discharge Activity
[2019-07-02] MEDS ORDERED: ACETAMINOPHEN 500 MG TABLET (FP) PO ONE (03:00)
[2019-07-02] MEDS ORDERED: IBUPROFEN 600 MG TABLET (FP) PO ONE ×2 (03:14→03:29)
[2019-07-02 04:23] VITALS: BP 134/90; PULSE 80; TEMP 98.4
== END 2019-07-02 03:20 | disposition home or self-care (01) ==
LOC: JER 23:40
PROC: 2W3RX1Z Immobilization of Left Lower Leg using Splint (ICD-10-PCS; principal; 2019-07-01)
DX: S99.822A Other specified injuries of left foot, initial encounter (principal); X50.1XXA Overexertion from prolonged static or awkward postures, initial encounter; Y93.02 Activity, running; Y92.89 Other specified places as the place of occurrence of the external cause; Y99.8 Other external cause status; I10 Essential (primary) hypertension; E11.9 Type 2 diabetes mellitus without complications; Z79.84 Long term (current) use of oral hypoglycemic drugs
CPT/HCPCS: 73610-TC-LT-FY; 73630-TC-LT; 99283-25